=== PATIENT | male | born 1970 | race African-American/Black ===

== ENCOUNTER 2016-12-30 21:00 | Inpatient (IN) | payer OTHER ==
[~2016-12-30 21:00] MED LIST: ISOVUE-370 76%-LOCM 1 ML ONE
[2016-12-30 21:18] LABS: Hematocrit 37.1 % (42.0-52.0); Mean Platelet Volume 7.5 fL (7.4-10.4); Red Blood Cell (RBC) Count 4.83 mill/uL (4.70-6.10); White Blood Cell (WBC) Count 3.5 thou/uL (4.8-10.8)
[2016-12-30 21:26] LABS: PTT 24.5 SEC (22.9-36.1)
[2016-12-30 21:33] LABS: Neutrophil 42 % (42-75); Reactive Lymphocytes 1 % (0-10)
[2016-12-30 21:35] LABS: Prothrombin Time 13.6 SEC (12.0-14.7)
[2016-12-30 21:38] LABS: ALT (SGPT) 30 U/L (8-55); AST (SGOT) 34 U/L (5-34); Alkaline Phosphatase 60 U/L (40-150); Anion Gap 14 mmol/L (10-20); BUN (Urea Nitrogen) 18 mg/dL (8.9-20.6); Bilirubin, Total 0.5 mg/dL (0.2-1.2); Calc. Creatinine Clearance 0 mL/min (70-130); Carbon Dioxide 20 mmol/L (22-29); Chloride 107 mmol/L (98-107); Estimated GFR-MDRD 76; Globulin 3.7 g/dL (2.4-3.5); Protein, Total 7.5 g/dL (6.0-8.3)
[2016-12-30] MEDS ORDERED: Dextrose 5% in Water 1,000 ML IV PRN (21:45)
[2016-12-30] MEDS ORDERED: Ondansetron ODT 4 MG TAB PO PRN (21:45)
[2016-12-30] MEDS ORDERED: Dextrose 50% Abboject 50 ML SYRINGE SLOW IVP PRN (21:45)
[2016-12-30] MEDS ORDERED: Promethazine HCl 25 MG/ML VIAL IM PRN (21:45)
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
[2016-12-30 22:02] LABS: Glucose, Urine (Dipstick) Negative (Negative); Ketone, Urine Trace mg/dL (Negative); Nitrite Negative (Negative); Protein, Urine (Dipstick) 30 mg/dL (Neg-Trace)
[2016-12-30 22:03] LABS: Bilirubin Negative (Negative); Blood, Urine Trace (Negative)
[2016-12-30 22:12] LABS: Amphetamine Not Detected (NotDetected); Methadone Not Detected (NotDetected); Methamphetamine Not Detected (NotDetected)
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
[2016-12-30 22:16] LABS: Bacteria/HPF None Seen HPF (None Seen); Hyaline Casts/LPF 0-3 HYALINE CAST LPF (0-3 Hyaline); Squamous Epithelial 0-3 HPF (0-3); WBC/HPF 0-3 HPF (0-3)
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
[2016-12-30] MEDS ORDERED: Ondansetron HCl/PF 4 MG/2 ML Vial ONE (23:38)
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
[2016-12-31] MEDS: Sodium Chloride 0.9% 1,000 ML IV SCH ×2 (00:58→08:45)
[2016-12-31] MEDS: Dexamethasone 4 mg/ml Vial SLOW IVP SCH ×4 (00:59→17:28)
[2016-12-31] MEDS: Morphine Sulfate 2 MG/ML SYRINGE SLOW IVP PRN ×3 (03:31→13:36)
[2016-12-31 04:58] LABS: #Basophils 0.1 thou/uL (0.0-0.2); #Lymphocytes 0.9 thou/uL (1.20-3.40); #Monocytes 0.3 thou/uL (0.11-0.59); #Neutrophils 4.7 thou/uL (1.40-6.50); %Basophils 1.1 % (0.0-1.0); %Eosinophils 0.3 % (0.0-10.0); %Lymphocytes 15.7 % (21.0-51.0); Hematocrit 38.1 % (42.0-52.0); Mean Platelet Volume 7.3 fL (7.4-10.4); Red Blood Cell (RBC) Count 4.96 mill/uL (4.70-6.10)
[2016-12-31 05:21] LABS: ALT (SGPT) 32 U/L (8-55); AST (SGOT) 28 U/L (5-34); Alkaline Phosphatase 62 U/L (40-150); Anion Gap 12 mmol/L (10-20); BUN (Urea Nitrogen) 13 mg/dL (8.9-20.6); Bilirubin, Total 0.5 mg/dL (0.2-1.2); Calc. Creatinine Clearance 174 mL/min (70-130); Calcium 9.1 mg/dL (7.8-10.44); Carbon Dioxide 21 mmol/L (22-29); Chloride 106 mmol/L (98-107); Estimated GFR-MDRD Greater than 90; Globulin 3.9 g/dL (2.4-3.5); Protein, Total 7.9 g/dL (6.0-8.3)
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
--- NOTE | 2016-12-31 07:40 | MRI ---
MRI THORACIC SPINE: INDICATION: Posttraumatic back pain. FINDINGS: There is no evidence of acute marrow edema, compression fracture, or significant subluxation within the thoracic spine. There is no acute disk space fluid. There are mild multilevel disk-osteophyte complex formation/disk bulges, effaces the ventral aspect of the thecal sac. Mild ventral cord effa cement is present. At the T6-7 level, there is a right paracentral disk protrusion which produces m ild mass effect upon the ventral aspect of the thoracic spinal cord. The degree of patient motion d oes limit evaluation of cord signal. No definitive intramedullary expansile pathologic process is d emonstrated. No obvious paraspinous ligamentous edema. No prevertebral edema of significance is se en. IMPRESSION: 1. No acute marrow edema, compression fracture, or subluxation. 2. Multilevel disk degenerative changes. There is limited evaluation due to patient motion. No ob vious expansile intramedullary acute posttraumatic process is seen. 3. There is mild ventral thoracic spinal cord effacement as a result of a right paracentral disk pr otrusion/osteophyte of the T6-7 level. 4. No acute edema related to ligamentous disruption evident within the thoracic spine. POS: [facility]
[2016-12-31] MEDS: Gabapentin 300 MG CAP PO SCH ×3 (08:44→20:03)
[2016-12-31] MEDS ORDERED: Famotidine/PF 20 mg/2ml Vial SLOW IVP SCH (09:00)
[2016-12-31] MEDS ORDERED: traMADol HCl 50 MG TAB PO SCH (11:30)
[2016-12-31] MEDS ORDERED: Acetaminophen 500 MG TAB PO SCH (11:30)
[2016-12-31] MEDS: traMADol HCl 50 MG TAB PO SCH ×2 (11:58→15:17)
[2016-12-31] MEDS ORDERED: Iopamidol 370 76% 50 ML VIAL FS ONE (14:00)
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
[2016-12-31] MEDS: Acetaminophen 500 MG TAB PO SCH (17:28)
[2016-12-31] MEDS: Ondansetron HCl/PF 4 MG/2 ML Vial IVP PRN (17:28)
--- NOTE | 2016-12-31 19:44 | OP ---
PREOPERATIVE DIAGNOSIS: Spinal cord injury with prolonged bed rest, anticipated no anticoagulation, possible. PROCEDURE: Optease IVC filter placement. FLUOROSCOPY: 1.3 minutes. CONTRAST: 27 mL PROCEDURE IN DETAIL: After prepping and draping the right groin, lidocaine was infiltrated. Ultras ound was used to guide puncture; however, femoral artery was initially punctured. After pressure, u ltimately palpation of the femoral artery allowed puncture the femoral vein. Wire was inserted, dil ator and sheath advanced. Contrast study was adequate for determining the diameter of the aorta 23. 5 to 24 mm; however, the anomalous retroaortic left renal vein was not well visualized. Because of this, a Al catheter was used to cannulate this vessel to low pinpoint location. Following this, t he Optease filter was deployed at the bottom of the L2 vertebral body. Catheters were removed and t he patient tolerated the procedure.
[2017-01-01] MEDS: traMADol HCl 50 MG TAB PO SCH ×4 (00:17→18:12)
[2017-01-01] MEDS: Acetaminophen 500 MG TAB PO SCH ×4 (00:17→18:13)
[2017-01-01] MEDS: Dexamethasone 4 mg/ml Vial SLOW IVP SCH ×2 (00:19→06:00)
[2017-01-01] MEDS: Pantoprazole 40 MG VIAL IVP SCH (08:09)
[2017-01-01] MEDS: Gabapentin 300 MG CAP PO SCH ×3 (08:10→20:18)
[2017-01-01] MEDS: Bacitracin Zinc Ointment 30 gm TUBE TOP PRN (12:38)
[2017-01-02] MEDS: Bacitracin Zinc Ointment 30 gm TUBE TOP PRN
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
[2017-01-02] MEDS: traMADol HCl 50 MG TAB PO SCH ×6 (00:17→20:23)
[2017-01-02] MEDS: Acetaminophen 500 MG TAB PO SCH ×5 (00:18→17:57)
[2017-01-02] MEDS ORDERED: Sodium Chloride 0.9% 1,000 ML IV SCH ×3 (01:45→07:15)
[2017-01-02] MEDS ORDERED: Albumin 5% 250 ML ONE (03:56)
[2017-01-02] MEDS ORDERED: Hydrocortisone Sod Succ/PF 100 mg/2 ml Vial IVP SCH (04:15)
[2017-01-02 04:38] LABS: #Lymphocytes 1.9 thou/uL (1.20-3.40); #Monocytes 0.9 thou/uL (0.11-0.59); #Neutrophils 5.6 thou/uL (1.40-6.50); %Basophils 0.1 % (0.0-1.0); %Eosinophils 0.3 % (0.0-10.0); %Lymphocytes 22.2 % (21.0-51.0); %Monocytes 10.8 % (0.0-10.0); Hematocrit 33.4 % (42.0-52.0); Mean Platelet Volume 7.4 fL (7.4-10.4); Red Blood Cell (RBC) Count 4.32 mill/uL (4.70-6.10); White Blood Cell (WBC) Count 8.4 thou/uL (4.8-10.8)
[2017-01-02 04:42] LABS: PTT 28.4 SEC (22.9-36.1); Prothrombin Time 16.9 SEC (12.0-14.7)
[2017-01-02 05:07] LABS: Anion Gap 14 mmol/L (10-20); BUN (Urea Nitrogen) 33 mg/dL (8.9-20.6); Calc. Creatinine Clearance 69 mL/min (70-130); Calcium 8.2 mg/dL (7.8-10.44); Carbon Dioxide 20 mmol/L (22-29); Chloride 104 mmol/L (98-107); Estimated GFR-MDRD 32; Magnesium 2.3 mg/dL (1.6-2.6); Phosphorus 5.4 mg/dL (2.3-4.7)
[2017-01-02] MEDS ORDERED: Lidocaine 1% (PF) 30 ML VIAL ONE (07:58)
[2017-01-02] MEDS ORDERED: Norepinephrine 8 MG/0.9% NS 250 ML ONE (08:03)
[2017-01-02] MEDS: Sodium Bicarbonate 150 MEQ in Dextrose 5% in Water 850 ML IV SCH ×6 (08:56→17:47)
[2017-01-02] MEDS: Gabapentin 300 MG CAP PO SCH ×2 (09:00→20:24)
[2017-01-02] MEDS: Pantoprazole 40 MG VIAL IVP SCH (09:01)
[2017-01-02] MEDS: Morphine Sulfate 2 MG/ML SYRINGE SLOW IVP PRN (09:01)
[2017-01-02] MEDS: Ondansetron HCl/PF 4 MG/2 ML Vial IVP PRN (09:07)
[2017-01-02] MEDS ORDERED: Fentanyl 100 MCG/2 ML VIAL ONE (10:55)
--- NOTE | 2017-01-02 11:10 | RAD ---
PORTABLE CHEST: HISTORY: Assess line placement. COMPARISON: 12/30/2016 FINDINGS: A central line has been placed via the left subclavian vein. The tip overlies the SVC and appears i n adequate position. There is some linear atelectasis in the left mid lung. There is mild cardiomegaly and mild vascular engorgement. No pneumothorax, infiltrate, or other acute process identified. POS: [facility]
[2017-01-02] MEDS ORDERED: Midazolam HCl 2 mg/2 ml Vial ONE (11:38)
[2017-01-02] MEDS ORDERED: Sodium Chloride 0.9% 10 ML ONE (13:00)
[2017-01-02] MEDS ORDERED: Bacitracin Zinc Ointment 30 gm TUBE ONE (13:03)
[2017-01-02] MEDS ORDERED: Phenylephrine 10 MG/NS 250 ML 0 ML ONE (13:40)
[2017-01-02] MEDS ORDERED: ePHEDrine/0.9% NaCl/PF SYRINGE 50 mg/10 ml ONE (13:53)
[2017-01-02] MEDS ORDERED: PHENYLEPHRINE-NS 100 MCG/ML 10 ML SYRINGE ONE ×2 (13:53→15:09)
[2017-01-02] MEDS ORDERED: Lidocaine 1% PF 5 ML VIAL ONE (13:53)
[2017-01-02] MEDS ORDERED: Propofol 200 MG/20 ML VIAL ONE (13:53)
[2017-01-02] MEDS ORDERED: Dexamethasone 20 MG/5 ML VIAL ONE (13:53)
[2017-01-02] MEDS ORDERED: Rocuronium Bromide 50 MG/5 ML VIAL ONE (14:13)
[2017-01-02] MEDS ORDERED: Albumin 5% 0 ML ONE (15:38)
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
--- NOTE | 2017-01-02 21:59 | OP ---
DATE OF PROCEDURE: 01/02/2017 SURGEON: Tom Schmitz M.D. SENIOR JAVA SOFTWARE ENGINEER: Wiley Lua PA-C PROCEDURE: Anterior cervical discectomy C3-C4, interbody arthrodesis, intravertebral biomechanical device, local morselized autograft, demineralized bone matrix, anterior titanium instrumentation C3- C4, posterior approach C3-C6 laminectomies, lateral mass screw instrumentation C3-C6, demineralized bone matrix, local morselized autograft, posterolateral arthrodesis C3-C6. DESCRIPTION OF PROCEDURE: The patient was brought into the operating room, intubated. He was posit ioned supine with the head in modest extension on a gel-filled donut. Incision was made in the [facility] t precervical area and dissecting medial to the sternocleidomastoid muscle. We identified the anter ior cervical spine and our level was confirmed by x-ray. We debrided anterior osteophytes at C3-C4, placed distraction across C3-C4 and using the operating microscope and microdissection techniques, a complete decompression was achieved to the spinal cord. Next, the bony endplates were decorticate d for the purpose of arthrodesis and appropriately sized intravertebral biomechanical PEEK device wa s brought into the field, filled with demineralized bone matrix and local morselized autograft, and tapped into place securely at C3-C4. Next, an anterior plate was brought in the field and secured t o C3 and C4 using two 14 mm screws at each level. The wound was then extensively irrigated, immacul ate hemostasis was secured, and the wound was closed in anatomic layers. The patient was then placed in the [employer] assistant teacher and rolled in the prone position on gel-filled chest rolls on a separate operating room table. A midline incision was made, exposing the C3-C6 bi laterally. We next performed a complete C6, complete C5, complete C4 and inferior C3 laminectomy, c ompletely decompressing the spinal cord. Lateral mass screws were placed at right C3, right C4, rig ht C5, and right C6, connected by rods, secured by nuts which were finally tightened. The wound was then extensively irrigated, immaculate hemostasis was secured. A combination of demineralized bone matrix and local morselized autograft was laid over the laminar and posterolateral surfaces for the purpose of arthrodesis. Vancomycin powder was applied and the wound was closed in anatomic layers over a drain.
[2017-01-03] MEDS: Acetaminophen 500 MG TAB PO SCH ×3 (00:49→11:28)
[2017-01-03] MEDS: Sodium Bicarbonate 150 MEQ in Dextrose 5% in Water 850 ML IV SCH ×8 (01:47→12:21)
[2017-01-03 04:21] LABS: Anion Gap 15 mmol/L (10-20); BUN (Urea Nitrogen) 39 mg/dL (8.9-20.6); Calc. Creatinine Clearance 97 mL/min (70-130); Calcium 7.5 mg/dL (7.8-10.44); Carbon Dioxide 26 mmol/L (22-29); Chloride 99 mmol/L (98-107); Estimated GFR-MDRD 49; Magnesium 2.2 mg/dL (1.6-2.6); Phosphorus 4.1 mg/dL (2.3-4.7)
[2017-01-03 04:24] LABS: #Monocytes 0.7 thou/uL (0.11-0.59); #Neutrophils 6.8 thou/uL (1.40-6.50); %Basophils 0.1 % (0.0-1.0); %Eosinophils 0.2 % (0.0-10.0); %Monocytes 8.6 % (0.0-10.0); Hematocrit 27.5 % (42.0-52.0); Mean Platelet Volume 8.2 fL (7.4-10.4); White Blood Cell (WBC) Count 8.6 thou/uL (4.8-10.8)
[2017-01-03] MEDS ORDERED: Chloraseptic Spray 180 ml Bottle PO PRN (06:40)
[2017-01-03] MEDS ORDERED: Diazepam 10 MG/2 ML SYRINGE IVP PRN (08:24)
[2017-01-03] MEDS: Gabapentin 300 MG CAP PO SCH ×2 (08:26→21:23)
[2017-01-03] MEDS: traMADol HCl 50 MG TAB PO SCH ×2 (08:27→14:51)
[2017-01-03] MEDS ORDERED: Lactated Ringer's 1,000 ML IV SCH (09:15)
[2017-01-03] MEDS: Pantoprazole 40 MG VIAL IVP SCH (09:40)
[2017-01-03] MEDS: Morphine Sulfate 2 MG/ML SYRINGE SLOW IVP PRN (11:28)
[2017-01-03] MEDS: Lactated Ringer's 1,000 ML IV SCH ×3 (13:20→21:24)
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
[2017-01-03] MEDS: Senokot S 8.6-50 MG TAB PO SCH (21:23)
[2017-01-03] MEDS: HYDROcodone/Acetaminophen 10/325 mg Tablet PO SCH (21:24)
[2017-01-04] MEDS: HYDROcodone/Acetaminophen 10/325 mg Tablet PO SCH ×6 (00:19→20:42)
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
[2017-01-04] MEDS: Lactated Ringer's 1,000 ML IV SCH ×4 (02:24→20:41)
[2017-01-04 05:16] LABS: Anion Gap 13 mmol/L (10-20); BUN (Urea Nitrogen) 42 mg/dL (8.9-20.6); Calc. Creatinine Clearance 125 mL/min (70-130); Calcium 7.8 mg/dL (7.8-10.44); Carbon Dioxide 29 mmol/L (22-29); Chloride 96 mmol/L (98-107); Estimated GFR-MDRD 65; Magnesium 2.5 mg/dL (1.6-2.6)
[2017-01-04 05:20] LABS: #Lymphocytes 1.5 thou/uL (1.20-3.40); #Monocytes 1.3 thou/uL (0.11-0.59); #Neutrophils 5.9 thou/uL (1.40-6.50); %Basophils 0.1 % (0.0-1.0); %Eosinophils 0.3 % (0.0-10.0); %Lymphocytes 17.2 % (21.0-51.0); %Monocytes 14.5 % (0.0-10.0); Hematocrit 27.6 % (42.0-52.0); Mean Platelet Volume 8.3 fL (7.4-10.4); Red Blood Cell (RBC) Count 3.58 mill/uL (4.70-6.10); White Blood Cell (WBC) Count 8.7 thou/uL (4.8-10.8)
[2017-01-04] MEDS: Gabapentin 300 MG CAP PO SCH ×2 (09:19→20:42)
[2017-01-04] MEDS: Polyethylene Glycol 3350 17 GM Packet PO SCH (09:20)
[2017-01-04] MEDS: Senokot S 8.6-50 MG TAB PO SCH ×2 (09:20→20:44)
[2017-01-04] MEDS: Clindamycin/D5W 600 MG in Premix Bag 1 BAG IVPB SCH ×3 (11:19→23:12)
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
[2017-01-04] MEDS: Dronabinol 2.5 MG CAP PO SCH (18:56)
[2017-01-05] MEDS: HYDROcodone/Acetaminophen 10/325 mg Tablet PO SCH ×6 (00:25→20:31)
[2017-01-05] MEDS: Lactated Ringer's 1,000 ML IV SCH (02:34)
[2017-01-05] MEDS: Clindamycin/D5W 600 MG in Premix Bag 1 BAG IVPB SCH (06:02)
[2017-01-05 06:38] LABS: #Lymphocytes 1.7 thou/uL (1.20-3.40); #Monocytes 1.5 thou/uL (0.11-0.59); #Neutrophils 9.8 thou/uL (1.40-6.50); %Eosinophils 0.4 % (0.0-10.0); %Lymphocytes 12.8 % (21.0-51.0); %Monocytes 11.7 % (0.0-10.0); Red Blood Cell (RBC) Count 3.54 mill/uL (4.70-6.10)
[2017-01-05 06:54] LABS: Anion Gap 15 mmol/L (10-20); BUN (Urea Nitrogen) 48 mg/dL (8.9-20.6); Calc. Creatinine Clearance 131 mL/min (70-130); Calcium 8.7 mg/dL (7.8-10.44); Carbon Dioxide 27 mmol/L (22-29); Chloride 95 mmol/L (98-107); Estimated GFR-MDRD 69; Magnesium 3.1 mg/dL (1.6-2.6); Phosphorus 4.4 mg/dL (2.3-4.7)
[2017-01-05 07:14] LABS: Band 1 % (5-11); Hypochromia SLIGHT = 6-15 cells (100X) (0-5/hpf); Mean Platelet Volume 8.7 fL (7.4-10.4); Metamyelocyte 1 % (0-0); Microcytosis SLIGHT = 6-15 cells (100X) (0-5/hpf); Neutrophil 67 % (42-75); Polychromasia SLIGHT = 2-3 cells (100X) (0-2/hpf); Promyelocytes 1 % (0-0)
[2017-01-05] MEDS: Polyethylene Glycol 3350 17 GM Packet PO SCH (08:40)
[2017-01-05] MEDS: Ascorbic Acid 500 mg Chewable Tablet PO SCH ×2 (08:40→20:30)
[2017-01-05] MEDS: Ferrous Sulfate 325 MG TAB PO SCH ×2 (08:41→17:27)
[2017-01-05] MEDS: Gabapentin 300 MG CAP PO SCH ×2 (08:41→20:30)
[2017-01-05] MEDS: Senokot S 8.6-50 MG TAB PO SCH ×2 (08:41→20:30)
[2017-01-05] MEDS: Bisacodyl 10 MG SUPP PR SCH (08:44)
[2017-01-05] MEDS: Dronabinol 2.5 MG CAP PO SCH ×2 (09:20→17:27)
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
[2017-01-05] MEDS: Neostigmine 0.5 MG in Pre-Filled Syringe 1 EACH SC SCH ×2 (11:26→17:27)
[2017-01-06] MEDS: HYDROcodone/Acetaminophen 10/325 mg Tablet PO SCH ×3 (00:20→10:03)
[2017-01-06] MEDS: Neostigmine 0.5 MG in Pre-Filled Syringe 1 EACH SC SCH ×3 (00:21→13:05)
[2017-01-06 04:56] LABS: #Basophils 0.1 thou/uL (0.0-0.2); #Eosinphils 0.2 thou/uL (0.0-0.7); #Lymphocytes 1.9 thou/uL (1.20-3.40); #Neutrophils 9.8 thou/uL (1.40-6.50); %Basophils 0.4 % (0.0-1.0); %Eosinophils 1.3 % (0.0-10.0); %Lymphocytes 13.4 % (21.0-51.0); %Monocytes 14.1 % (0.0-10.0); Hematocrit 24.5 % (42.0-52.0); Mean Platelet Volume 9.4 fL (7.4-10.4); White Blood Cell (WBC) Count 13.8 thou/uL (4.8-10.8)
[2017-01-06 05:09] LABS: Anion Gap 17 mmol/L (10-20); BUN (Urea Nitrogen) 73 mg/dL (8.9-20.6); Calc. Creatinine Clearance 88 mL/min (70-130); Calcium 8.7 mg/dL (7.8-10.44); Carbon Dioxide 26 mmol/L (22-29); Chloride 92 mmol/L (98-107); Estimated GFR-MDRD 43; Magnesium 3.4 mg/dL (1.6-2.6); Phosphorus 5.1 mg/dL (2.3-4.7)
[2017-01-06] MEDS: Ascorbic Acid 500 mg Chewable Tablet PO SCH ×2 (10:02→20:27)
[2017-01-06] MEDS: Gabapentin 300 MG CAP PO SCH ×2 (10:02→20:27)
[2017-01-06] MEDS: Ferrous Sulfate 325 MG TAB PO SCH ×2 (10:02→17:42)
[2017-01-06] MEDS: Dronabinol 2.5 MG CAP PO SCH ×2 (10:02→18:13)
[2017-01-06] MEDS: Bisacodyl 10 MG SUPP PR SCH (10:07)
[2017-01-06] MEDS: Polyethylene Glycol 3350 17 GM Packet PO SCH (10:07)
[2017-01-06] MEDS: Senokot S 8.6-50 MG TAB PO SCH ×2 (10:08→20:27)
[2017-01-06] MEDS: HYDROcodone/Acetaminophen 10/325 mg Tablet PO PRN (17:42)
[2017-01-06] MEDS: Cyclobenzaprine 10 MG TAB PO PRN (20:29)
[2017-01-07] MEDS: HYDROcodone/Acetaminophen 10/325 mg Tablet PO PRN ×2 (04:30→21:57)
[2017-01-07] MEDS ORDERED: Sodium Chloride 0.9% 1,000 ML IV SCH (08:00)
[2017-01-07] MEDS: Gabapentin 300 MG CAP PO SCH ×2 (09:37→21:55)
[2017-01-07] MEDS: Ascorbic Acid 500 mg Chewable Tablet PO SCH ×2 (09:37→21:55)
[2017-01-07] MEDS: Ferrous Sulfate 325 MG TAB PO SCH ×2 (09:38→18:11)
[2017-01-07] MEDS: Polyethylene Glycol 3350 17 GM Packet PO SCH (09:39)
[2017-01-07] MEDS: Senokot S 8.6-50 MG TAB PO SCH ×2 (09:39→21:56)
[2017-01-07] MEDS: Dronabinol 2.5 MG CAP PO SCH ×2 (09:39→18:09)
[2017-01-07] MEDS: Bisacodyl 10 MG SUPP PR SCH (09:40)
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
[2017-01-08] MEDS: Acetaminophen 500 MG TAB PO PRN ×2 (05:16→21:33)
[2017-01-08 05:55] LABS: Anion Gap 15 mmol/L (10-20); BUN (Urea Nitrogen) 82 mg/dL (8.9-20.6); Calc. Creatinine Clearance 90 mL/min (70-130); Calcium 8.4 mg/dL (7.8-10.44); Carbon Dioxide 25 mmol/L (22-29); Chloride 95 mmol/L (98-107); Estimated GFR-MDRD 44; Magnesium 3.6 mg/dL (1.6-2.6); Phosphorus 4.4 mg/dL (2.3-4.7)
[2017-01-08 06:50] LABS: Anisocytosis SLIGHT = 6-15 cells (100X) (0-5/hpf); Band 2 % (5-11); Hematocrit 23.1 % (42.0-52.0); Hypochromia SLIGHT = 6-15 cells (100X) (0-5/hpf); Metamyelocyte 4 % (0-0); Myelocyte 2 % (0-0); Neutrophil 70 % (42-75); Polychromasia SLIGHT = 2-3 cells (100X) (0-2/hpf); White Blood Cell (WBC) Count 16.5 thou/uL (4.8-10.8)
[2017-01-08] MEDS: Sodium Chloride 0.9% 1,000 ML IV SCH ×2 (08:24→16:38)
[2017-01-08] MEDS: Ferrous Sulfate 325 MG TAB PO SCH ×2 (08:25→16:38)
[2017-01-08] MEDS: Ascorbic Acid 500 mg Chewable Tablet PO SCH ×2 (08:25→21:33)
[2017-01-08] MEDS: Dronabinol 2.5 MG CAP PO SCH ×2 (08:52→16:57)
[2017-01-08] MEDS: Gabapentin 300 MG CAP PO SCH ×2 (08:52→21:33)
[2017-01-08] MEDS: Bisacodyl 10 MG SUPP PR SCH (08:52)
[2017-01-08] MEDS: Senokot S 8.6-50 MG TAB PO SCH ×2 (08:53→21:44)
[2017-01-08] MEDS: Polyethylene Glycol 3350 17 GM Packet PO SCH (08:53)
--- NOTE | 2017-01-08 09:13 | PRG ---
DATE OF SERVICE: 01/08/2017 NEUROSURGERY PROGRESS NOTE SUBJECTIVE: I saw Mr. Beckwith in his hospital bed this morning. He has been attended to by his darci ramirez. Yesterday's ultrasound of the lower extremities showed bilateral DVT. There is a filter in plac e. I think we should hold off on any anticoagulation yet. I will have Dr. Schmitz in way and jaden cortez, but I still think it is a bit early from anterior to posterior decompression and fusion of the cervical spine. Otherwise, Mr. Beckwith is doing well and enjoying the the visit. I do not plan to change his hospital course today.
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
[2017-01-08] MEDS: Cyclobenzaprine 10 MG TAB PO PRN (21:33)
[2017-01-08] MEDS: HYDROcodone/Acetaminophen 10/325 mg Tablet PO PRN (21:34)
[2017-01-09] MEDS: Sodium Chloride 0.9% 1,000 ML IV SCH ×4 (00:14→23:10)
[2017-01-09] MEDS: Acetaminophen 500 MG TAB PO PRN (04:22)
[2017-01-09 06:19] LABS: Anion Gap 15 mmol/L (10-20); BUN (Urea Nitrogen) 74 mg/dL (8.9-20.6); Calc. Creatinine Clearance 94 mL/min (70-130); Calcium 8.2 mg/dL (7.8-10.44); Carbon Dioxide 24 mmol/L (22-29); Chloride 98 mmol/L (98-107); Estimated GFR-MDRD 47; Magnesium 3.6 mg/dL (1.6-2.6); Phosphorus 4.6 mg/dL (2.3-4.7)
[2017-01-09 06:20] LABS: Hematocrit 21.7 % (42.0-52.0); Mean Platelet Volume 8.4 fL (7.4-10.4); Metamyelocyte 1 % (0-0); Neutrophil 78 % (42-75); Red Blood Cell (RBC) Count 2.79 mill/uL (4.70-6.10); White Blood Cell (WBC) Count 17.2 thou/uL (4.8-10.8)
--- NOTE | 2017-01-09 07:41 | RAD ---
SINGLE VIEW OF THE CHEST: COMPARISON: 01/02/17. HISTORY: Fever. FINDINGS: A single view of the chest shows a normal-size cardiomediastinal silhouette. There is a linear opac ity in the left lung base which may represent atelectasis or an infiltrate. The central venous cath eter is unchanged in position. IMPRESSION: Opacity in the left lower lobe may represent atelectasis or infiltrate. POS: [facility]
[2017-01-09] MEDS: Dronabinol 2.5 MG CAP PO SCH ×3 (07:58→16:52)
[2017-01-09] MEDS: Ferrous Sulfate 325 MG TAB PO SCH ×2 (10:48→16:48)
[2017-01-09] MEDS: Gabapentin 300 MG CAP PO SCH ×2 (10:48→21:20)
[2017-01-09] MEDS: Bisacodyl 10 MG SUPP PR SCH (10:51)
[2017-01-09] MEDS: Ascorbic Acid 500 mg Chewable Tablet PO SCH ×2 (10:51→21:20)
[2017-01-09] MEDS: Senokot S 8.6-50 MG TAB PO SCH ×2 (10:51→21:20)
[2017-01-09] MEDS: Polyethylene Glycol 3350 17 GM Packet PO SCH (10:51)
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
[2017-01-09] MEDS: cefTRIAXone\\ROCEPHIN 2 GM in Sodium Chloride 0.9% 100 ML IVPB SCH (16:45)
[2017-01-09] MEDS ORDERED: Albumin 25% 25 GM/100 ML BOT IVPB SCH (19:00)
[2017-01-09] MEDS: Cyclobenzaprine 10 MG TAB PO PRN (23:03)
[2017-01-09] MEDS: HYDROcodone/Acetaminophen 10/325 mg Tablet PO PRN (23:03)
[2017-01-10] MEDS: Sodium Chloride 0.9% 1,000 ML IV SCH ×2 (06:48→21:10)
[2017-01-10 08:05] LABS: Hematocrit 20.3 % (42.0-52.0); Mean Platelet Volume 8.4 fL (7.4-10.4); Red Blood Cell (RBC) Count 2.62 mill/uL (4.70-6.10); White Blood Cell (WBC) Count 20.3 thou/uL (4.8-10.8)
[2017-01-10 08:22] LABS: Band 7 % (5-11); Hypochromia SLIGHT = 6-15 cells (100X) (0-5/hpf); Metamyelocyte 1 % (0-0); Myelocyte 1 % (0-0); Neutrophil 75 % (42-75); Polychromasia MODERATE = 3-4 cells (100X) (0-2/hpf)
[2017-01-10 08:25] LABS: Anion Gap 15 mmol/L (10-20); BUN (Urea Nitrogen) 68 mg/dL (8.9-20.6); Calc. Creatinine Clearance 94 mL/min (70-130); Calcium 8.1 mg/dL (7.8-10.44); Carbon Dioxide 21 mmol/L (22-29); Chloride 100 mmol/L (98-107); Estimated GFR-MDRD 47; Magnesium 3.5 mg/dL (1.6-2.6)
[2017-01-10] MEDS: Saccharomyces boulardii 250 MG CAP PO SCH ×2 (10:57→18:02)
[2017-01-10] MEDS: Gabapentin 300 MG CAP PO SCH ×3 (10:57→21:09)
[2017-01-10] MEDS: Ascorbic Acid 500 mg Chewable Tablet PO SCH ×3 (10:57→21:10)
[2017-01-10] MEDS: Ferrous Sulfate 325 MG TAB PO SCH ×3 (10:58→19:05)
[2017-01-10] MEDS: Bisacodyl 10 MG SUPP PR SCH (10:58)
[2017-01-10] MEDS: Dronabinol 2.5 MG CAP PO SCH ×2 (10:59→18:01)
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
[2017-01-10] MEDS: cefTRIAXone\\ROCEPHIN 2 GM in Sodium Chloride 0.9% 100 ML IVPB SCH (16:46)
[2017-01-10] MEDS: Cyclobenzaprine 10 MG TAB PO PRN (18:56)
[2017-01-10] MEDS: HYDROcodone/Acetaminophen 10/325 mg Tablet PO PRN (18:57)
[2017-01-10 21:01] LABS: Bilirubin Negative (Negative); Blood, Urine Moderate (Negative); Glucose, Urine (Dipstick) Negative (Negative); Ketone, Urine Negative (Negative); Nitrite Negative (Negative); Protein, Urine (Dipstick) Trace mg/dL (Neg-Trace)
[2017-01-10 21:03] LABS: Bacteria/HPF None Seen HPF (None Seen); Squamous Epithelial 0-3 HPF (0-3); WBC/HPF 0-3 HPF (0-3)
[2017-01-10] MEDS: GENVOYA PO SCH (21:10)
[2017-01-10 21:16] LABS: RBC/HPF 0-3 HPF (0-3)
[2017-01-10 21:17] LABS: Hyaline Casts/LPF 0-3 HYALINE CAST LPF (0-3 Hyaline)
[2017-01-11] MEDS: Sodium Chloride 0.9% 1,000 ML IV SCH ×3 (00:23→18:31)
[2017-01-11] MEDS: Acetaminophen 500 MG TAB PO PRN (02:07)
[2017-01-11 08:20] LABS: ALT (SGPT) 131 U/L (8-55); AST (SGOT) 188 U/L (5-34); Alkaline Phosphatase 104 U/L (40-150); Anion Gap 15 mmol/L (10-20); BUN (Urea Nitrogen) 67 mg/dL (8.9-20.6); Calc. Creatinine Clearance 94 mL/min (70-130); Calcium 8.2 mg/dL (7.8-10.44); Carbon Dioxide 19 mmol/L (22-29); Chloride 103 mmol/L (98-107); Estimated GFR-MDRD 47; Globulin 3.9 g/dL (2.4-3.5)
[2017-01-11 08:38] LABS: Hematocrit 21.9 % (42.0-52.0); Mean Platelet Volume 8.1 fL (7.4-10.4); Red Blood Cell (RBC) Count 2.79 mill/uL (4.70-6.10); White Blood Cell (WBC) Count 18.7 thou/uL (4.8-10.8)
[2017-01-11 08:44] LABS: Band 8 % (5-11); Metamyelocyte 2 % (0-0); Microcytosis SLIGHT = 6-15 cells (100X) (0-5/hpf); Neutrophil 75 % (42-75); Polychromasia SLIGHT = 2-3 cells (100X) (0-2/hpf); Toxic Granulation SLIGHT
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
[2017-01-11] MEDS: Saccharomyces boulardii 250 MG CAP PO SCH (11:21)
[2017-01-11] MEDS: Ascorbic Acid 500 mg Chewable Tablet PO SCH ×2 (11:21→20:58)
[2017-01-11] MEDS: Gabapentin 300 MG CAP PO SCH ×2 (11:21→20:58)
[2017-01-11] MEDS: Bisacodyl 10 MG SUPP PR SCH (11:21)
[2017-01-11] MEDS: Ferrous Sulfate 325 MG TAB PO SCH ×2 (11:21→16:44)
[2017-01-11] MEDS: Dronabinol 2.5 MG CAP PO SCH ×2 (11:21→17:06)
[2017-01-11] MEDS ORDERED: Furosemide 20 MG TAB PO SCH (12:00)
[2017-01-11] MEDS: cefTRIAXone\\ROCEPHIN 2 GM in Sodium Chloride 0.9% 100 ML IVPB SCH (15:46)
[2017-01-11] MEDS: BIOTENE MOUTH SPRAY 44.3 ML MM PRN (16:49)
[2017-01-11] MEDS: GENVOYA PO SCH (20:58)
[2017-01-11] MEDS: Cyclobenzaprine 10 MG TAB PO PRN (20:59)
[2017-01-12] MEDS: Acetaminophen 500 MG TAB PO PRN (01:06)
[2017-01-12] MEDS: Sodium Chloride 0.9% 1,000 ML IV SCH ×4 (01:06→22:50)
[2017-01-12 06:15] LABS: #Basophils 0.3 thou/uL (0.0-0.2); #Eosinphils 0.1 thou/uL (0.0-0.7); #Lymphocytes 1.1 thou/uL (1.20-3.40); #Monocytes 1.6 thou/uL (0.11-0.59); #Neutrophils 15.8 thou/uL (1.40-6.50); %Basophils 1.6 % (0.0-1.0); %Eosinophils 0.6 % (0.0-10.0); %Lymphocytes 5.6 % (21.0-51.0); %Monocytes 8.2 % (0.0-10.0); Hematocrit 24.3 % (42.0-52.0); Mean Platelet Volume 7.7 fL (7.4-10.4); Red Blood Cell (RBC) Count 3.03 mill/uL (4.70-6.10); White Blood Cell (WBC) Count 18.9 thou/uL (4.8-10.8)
[2017-01-12 06:27] LABS: ALT (SGPT) 147 U/L (8-55); AST (SGOT) 171 U/L (5-34); Alkaline Phosphatase 108 U/L (40-150); Anion Gap 15 mmol/L (10-20); BUN (Urea Nitrogen) 65 mg/dL (8.9-20.6); Bilirubin, Total 0.8 mg/dL (0.2-1.2); Calc. Creatinine Clearance 99 mL/min (70-130); Calcium 8.2 mg/dL (7.8-10.44); Carbon Dioxide 19 mmol/L (22-29); Chloride 102 mmol/L (98-107); Estimated GFR-MDRD 50
[2017-01-12] MEDS: Saccharomyces boulardii 250 MG CAP PO SCH (08:54)
[2017-01-12] MEDS: Ascorbic Acid 500 mg Chewable Tablet PO SCH ×2 (08:54→21:25)
[2017-01-12] MEDS: Ferrous Sulfate 325 MG TAB PO SCH ×2 (08:54→16:32)
[2017-01-12] MEDS: Gabapentin 300 MG CAP PO SCH ×2 (08:54→21:25)
[2017-01-12] MEDS: Dronabinol 2.5 MG CAP PO SCH ×3 (08:54→15:59)
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
[2017-01-12] MEDS: cefTRIAXone\\ROCEPHIN 2 GM in Sodium Chloride 0.9% 100 ML IVPB SCH (16:32)
[2017-01-12] MEDS: GENVOYA PO SCH (21:25)
[2017-01-13] MEDS: HYDROcodone/Acetaminophen 10/325 mg Tablet PO PRN ×2 (01:52→18:42)
[2017-01-13] MEDS: BIOTENE MOUTH SPRAY 44.3 ML MM PRN (02:02)
[2017-01-13] MEDS: Dronabinol 2.5 MG CAP PO SCH ×2 (08:36→17:56)
[2017-01-13] MEDS: Gabapentin 300 MG CAP PO SCH ×2 (09:02→20:10)
[2017-01-13] MEDS: Saccharomyces boulardii 250 MG CAP PO SCH (09:03)
[2017-01-13] MEDS: Ascorbic Acid 500 mg Chewable Tablet PO SCH ×2 (09:03→20:07)
[2017-01-13] MEDS: Ferrous Sulfate 325 MG TAB PO SCH ×2 (09:03→17:56)
[2017-01-13] MEDS: Piperacillin/Tazobactam 3.375 GM in Sodium Chloride 0.9% 100 ML IVPB SCH ×2 (12:25→17:56)
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
[2017-01-13] MEDS: DIPHENHYDRAMINE HCL SSW PRN ×4 (15:53)
[2017-01-13] MEDS: MAGNESIUM HYDROXIDE SSW PRN ×4 (15:53)
[2017-01-13] MEDS: ALUMINUM SSW PRN ×4 (15:53)
[2017-01-13] MEDS: [UNRECOGNIZED DRUG - OTHER] SSW PRN ×4 (15:53)
[2017-01-13] MEDS: Cyclobenzaprine 10 MG TAB PO PRN (18:42)
[2017-01-13] MEDS: GENVOYA PO SCH (20:10)
[2017-01-14] MEDS: Piperacillin/Tazobactam 3.375 GM in Sodium Chloride 0.9% 100 ML IVPB SCH ×4 (00:15→17:56)
[2017-01-14] MEDS: DIPHENHYDRAMINE HCL SSW PRN ×8 (00:30→12:20)
[2017-01-14] MEDS: ALUMINUM SSW PRN ×8 (00:30→12:20)
[2017-01-14] MEDS: MAGNESIUM HYDROXIDE SSW PRN ×8 (00:30→12:20)
[2017-01-14] MEDS: [UNRECOGNIZED DRUG - OTHER] SSW PRN ×8 (00:30→12:20)
[2017-01-14] MEDS: Cyclobenzaprine 10 MG TAB PO PRN ×2 (02:24→17:56)
[2017-01-14 06:10] LABS: #Basophils 0.3 thou/uL (0.0-0.2); #Eosinphils 0.1 thou/uL (0.0-0.7); #Lymphocytes 0.9 thou/uL (1.20-3.40); #Monocytes 1.2 thou/uL (0.11-0.59); #Neutrophils 11.5 thou/uL (1.40-6.50); %Basophils 2.3 % (0.0-1.0); %Eosinophils 0.9 % (0.0-10.0); %Lymphocytes 6.6 % (21.0-51.0); %Monocytes 8.2 % (0.0-10.0); Hematocrit 23.2 % (42.0-52.0)
[2017-01-14 06:34] LABS: Anion Gap 11 mmol/L (10-20); BUN (Urea Nitrogen) 51 mg/dL (8.9-20.6); Calc. Creatinine Clearance 119 mL/min (70-130); Calcium 8.2 mg/dL (7.8-10.44); Carbon Dioxide 22 mmol/L (22-29); Chloride 105 mmol/L (98-107); Estimated GFR-MDRD 61; Magnesium 2.6 mg/dL (1.6-2.6)
[2017-01-14] MEDS ORDERED: Potassium Chloride 20 MEQ TAB PO SCH (08:15)
[2017-01-14] MEDS: Dronabinol 2.5 MG CAP PO SCH ×2 (08:38→16:07)
[2017-01-14] MEDS: Gabapentin 300 MG CAP PO SCH ×2 (09:00→20:43)
[2017-01-14] MEDS: Ascorbic Acid 500 mg Chewable Tablet PO SCH ×2 (09:00→20:43)
[2017-01-14] MEDS: Saccharomyces boulardii 250 MG CAP PO SCH (09:00)
[2017-01-14] MEDS: Ferrous Sulfate 325 MG TAB PO SCH ×2 (09:00→17:56)
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
[2017-01-14] MEDS: HYDROcodone/Acetaminophen 10/325 mg Tablet PO PRN (17:57)
[2017-01-14] MEDS: GENVOYA PO SCH (20:43)
[2017-01-14] MEDS: Sodium Chloride 0.9% 1,000 ML IV SCH (22:15)
[2017-01-15] MEDS: Piperacillin/Tazobactam 3.375 GM in Sodium Chloride 0.9% 100 ML IVPB SCH ×5 (00:55→23:25)
[2017-01-15 01:06] LABS: Bacteria/HPF None Seen HPF (None Seen); Squamous Epithelial 0-3 HPF (0-3)
[2017-01-15 01:10] LABS: RBC/HPF GREATER THAN 50-TNTC HPF (0-3)
[2017-01-15 01:12] LABS: Bilirubin Small (Negative); Blood, Urine Large (Negative); Glucose, Urine (Dipstick) Negative (Negative); Ketone, Urine Negative (Negative); Nitrite Negative (Negative); Protein, Urine (Dipstick) > or equal to 300 mg/dL (Neg-Trace); Urobilinogen 0.2 mg/dL (0.2-1.0)
[2017-01-15 01:15] LABS: Hyaline Casts/LPF 0-3 HYALINE CAST LPF (0-3 Hyaline); Renal Epithelial None Seen HPF (0-3); Transitional Epithelial NONE SEEN HPF (0-3); Yeast-All Forms None Seen HPF (None Seen)
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
[2017-01-15 06:00] LABS: #Eosinphils 0.2 thou/uL (0.0-0.7); %Basophils 0.2 % (0.0-1.0); %Eosinophils 1.2 % (0.0-10.0); %Lymphocytes 7.7 % (21.0-51.0); %Monocytes 7.4 % (0.0-10.0); Hematocrit 22.5 % (42.0-52.0); Mean Platelet Volume 6.6 fL (7.4-10.4); White Blood Cell (WBC) Count 13.1 thou/uL (4.8-10.8)
[2017-01-15 06:47] LABS: Anion Gap 12 mmol/L (10-20); BUN (Urea Nitrogen) 60 mg/dL (8.9-20.6); Calc. Creatinine Clearance 72 mL/min (70-130); Carbon Dioxide 21 mmol/L (22-29); Chloride 105 mmol/L (98-107); Estimated GFR-MDRD 34; Magnesium 2.6 mg/dL (1.6-2.6); Phosphorus 4.6 mg/dL (2.3-4.7)
[2017-01-15] MEDS ORDERED: Potassium Chloride 20 MEQ TAB PO SCH (08:30)
[2017-01-15] MEDS ORDERED: Furosemide 20 MG/2 ML VIAL SLOW IVP SCH (08:30)
[2017-01-15] MEDS: Ascorbic Acid 500 mg Chewable Tablet PO SCH ×2 (08:36→20:50)
[2017-01-15] MEDS: Saccharomyces boulardii 250 MG CAP PO SCH (08:37)
[2017-01-15] MEDS: Gabapentin 300 MG CAP PO SCH ×2 (08:37→20:50)
[2017-01-15] MEDS: Ferrous Sulfate 325 MG TAB PO SCH ×2 (08:37→17:41)
[2017-01-15] MEDS: Dronabinol 2.5 MG CAP PO SCH (09:07)
[2017-01-15] MEDS: Megestrol Acetate 40 MG TAB PO SCH ×2 (14:18→20:50)
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
[2017-01-15] MEDS: GENVOYA PO SCH (20:51)
[2017-01-15] MEDS ORDERED: FLU VACC QS2017-18 36 mo. & older 0.5 ML SYRINGE IM ONE (21:00)
[2017-01-16] MEDS: [UNRECOGNIZED DRUG - OTHER] SSW PRN ×4 (01:34)
[2017-01-16] MEDS: MAGNESIUM HYDROXIDE SSW PRN ×4 (01:34)
[2017-01-16] MEDS: DIPHENHYDRAMINE HCL SSW PRN ×4 (01:34)
[2017-01-16] MEDS: ALUMINUM SSW PRN ×4 (01:34)
[2017-01-16 04:55] LABS: #Eosinphils 0.2 thou/uL (0.0-0.7); #Lymphocytes 1.1 thou/uL (1.20-3.40); #Monocytes 1.1 thou/uL (0.11-0.59); #Neutrophils 9.2 thou/uL (1.40-6.50); %Eosinophils 1.6 % (0.0-10.0); %Lymphocytes 9.3 % (21.0-51.0); %Monocytes 9.1 % (0.0-10.0); Mean Platelet Volume 6.6 fL (7.4-10.4); Red Blood Cell (RBC) Count 2.77 mill/uL (4.70-6.10); White Blood Cell (WBC) Count 11.5 thou/uL (4.8-10.8)
[2017-01-16 05:29] LABS: Anion Gap 11 mmol/L (10-20); BUN (Urea Nitrogen) 69 mg/dL (8.9-20.6); Calc. Creatinine Clearance 62 mL/min (70-130); Calcium 8.2 mg/dL (7.8-10.44); Carbon Dioxide 22 mmol/L (22-29); Chloride 105 mmol/L (98-107); Estimated GFR-MDRD 29; Magnesium 2.8 mg/dL (1.6-2.6); Phosphorus 5.1 mg/dL (2.3-4.7)
[2017-01-16] MEDS: Piperacillin/Tazobactam 3.375 GM in Sodium Chloride 0.9% 100 ML IVPB SCH ×2 (05:51→13:05)
[2017-01-16] MEDS ORDERED: Magnesium Sulfate 3 GM, Admixture Fee 1 EACH in Sodium Chloride 0.9% 100 ML IVPB SCH (07:30)
[2017-01-16] MEDS ORDERED: Potassium Chloride 40 MEQ in Premix Bag 1 BAG IVPB SCH (07:30)
[2017-01-16] MEDS ORDERED: Potassium Chloride 40 MEQ, Admixture Fee 1 EACH in Sodium Chloride 0.9% 250 ML 250 ML IVPB SCH (07:30)
[2017-01-16] MEDS: Ferrous Sulfate 325 MG TAB PO SCH ×2 (09:34→17:41)
[2017-01-16] MEDS: Gabapentin 300 MG CAP PO SCH ×2 (09:34→20:18)
[2017-01-16] MEDS: Megestrol Acetate 40 MG TAB PO SCH ×3 (09:34→20:18)
[2017-01-16] MEDS: Ascorbic Acid 500 mg Chewable Tablet PO SCH ×2 (09:34→20:18)
[2017-01-16] MEDS: Saccharomyces boulardii 250 MG CAP PO SCH (09:35)
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
[2017-01-16] MEDS ORDERED: Nystatin 100,000 Units/mL UDCUP SSW SCH (13:00)
[2017-01-16] MEDS: Nystatin 500,000 UNITS/5 ML UDCUP SSW SCH ×4 (13:06→20:22)
[2017-01-16] MEDS: Loperamide HCl 2 MG CAP PO PRN (13:06)
[2017-01-16 14:55] LABS: Hematocrit 22.9 % (42.0-52.0)
[2017-01-16] MEDS: Piperacillin/Tazobactam 2.25 GM in Sodium Chloride 0.9% 100 ML IVPB SCH (17:41)
[2017-01-16] MEDS: GENVOYA PO SCH (20:17)
[2017-01-16] MEDS: Enoxaparin Sodium 30 MG/0.3 ML SYRINGE SC SCH (20:18)
[2017-01-16] MEDS: HYDROcodone/Acetaminophen 7.5/325 mg Tablet PO PRN (20:33)
[2017-01-17] MEDS: Piperacillin/Tazobactam 2.25 GM in Sodium Chloride 0.9% 100 ML IVPB SCH ×5 (00:03→22:49)
[2017-01-17] MEDS: HYDROcodone/Acetaminophen 7.5/325 mg Tablet PO PRN ×3 (02:53→22:49)
[2017-01-17 06:24] LABS: #Basophils 0.2 thou/uL (0.0-0.2); #Eosinphils 0.1 thou/uL (0.0-0.7); #Lymphocytes 0.9 thou/uL (1.20-3.40); #Monocytes 0.9 thou/uL (0.11-0.59); #Neutrophils 8.9 thou/uL (1.40-6.50); %Basophils 1.6 % (0.0-1.0); %Monocytes 8.1 % (0.0-10.0); Hematocrit 23.3 % (42.0-52.0); Mean Platelet Volume 6.5 fL (7.4-10.4); Red Blood Cell (RBC) Count 2.87 mill/uL (4.70-6.10)
[2017-01-17 07:04] LABS: Anion Gap 14 mmol/L (10-20); BUN (Urea Nitrogen) 80 mg/dL (8.9-20.6); Calc. Creatinine Clearance 50 mL/min (70-130); Calcium 8.2 mg/dL (7.8-10.44); Carbon Dioxide 18 mmol/L (22-29); Chloride 106 mmol/L (98-107); Estimated GFR-MDRD 23; Magnesium 2.6 mg/dL (1.6-2.6); Phosphorus 5.8 mg/dL (2.3-4.7)
[2017-01-17] MEDS ORDERED: Potassium Chloride 40 MEQ, Admixture Fee 1 EACH in Sodium Chloride 0.9% 250 ML 250 ML IVPB SCH (07:45)
[2017-01-17] MEDS ORDERED: Potassium Chloride 40 MEQ in Premix Bag 1 BAG IVPB SCH (07:45)
[2017-01-17] MEDS: Saccharomyces boulardii 250 MG CAP PO SCH (10:24)
[2017-01-17] MEDS: Ascorbic Acid 500 mg Chewable Tablet PO SCH ×2 (10:24→20:06)
[2017-01-17] MEDS: Nystatin 500,000 UNITS/5 ML UDCUP SSW SCH ×4 (10:25→20:06)
[2017-01-17] MEDS: Ferrous Sulfate 325 MG TAB PO SCH ×2 (10:25→17:41)
[2017-01-17] MEDS: Gabapentin 300 MG CAP PO SCH ×2 (10:26→20:06)
[2017-01-17] MEDS: Loperamide HCl 2 MG CAP PO PRN (10:35)
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
[2017-01-17] MEDS ORDERED: ADMIXTURE FEE IVPB SCH (11:30)
[2017-01-17] MEDS ORDERED: BEVACIZUMAB IVPB SCH (11:30)
[2017-01-17] MEDS ORDERED: SODIUM CHLORIDE IVPB SCH (11:30)
[2017-01-17] MEDS: Enoxaparin Sodium 30 MG/0.3 ML SYRINGE SC SCH ×2 (11:43→20:06)
--- NOTE | 2017-01-17 12:46 | ULT ---
RENAL ULTRASOUND: History: History of renal failure. Comparison: None. FINDINGS: The right kidney measures 12.5 x 5.2 x 5.4 cm. Left kidney measures 13.3 x 6.2 x 6.7 cm. No focal re nal lesion or hydronephrosis is evident. Romano catheter is seen in the decompressed bladder. IMPRESSION: No hydronephrosis or solitary lesion. POS: [facility]
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
[2017-01-17] MEDS: Sodium Chloride 0.9% 1,000 ML IV SCH ×2 (17:41→20:06)
[2017-01-17] MEDS: GENVOYA PO SCH (20:06)
[2017-01-18] MEDS: Piperacillin/Tazobactam 2.25 GM in Sodium Chloride 0.9% 100 ML IVPB SCH (05:05)
[2017-01-18 06:57] LABS: #Eosinphils 0.1 thou/uL (0.0-0.7); #Lymphocytes 0.9 thou/uL (1.20-3.40); #Monocytes 0.7 thou/uL (0.11-0.59); #Neutrophils 8.8 thou/uL (1.40-6.50); %Basophils 0.3 % (0.0-1.0); %Eosinophils 1.1 % (0.0-10.0); %Lymphocytes 8.9 % (21.0-51.0); %Monocytes 6.3 % (0.0-10.0); Hematocrit 25.2 % (42.0-52.0); Mean Platelet Volume 6.4 fL (7.4-10.4); Red Blood Cell (RBC) Count 3.13 mill/uL (4.70-6.10); White Blood Cell (WBC) Count 10.5 thou/uL (4.8-10.8)
[2017-01-18 07:21] LABS: Anion Gap 15 mmol/L (10-20); BUN (Urea Nitrogen) 95 mg/dL (8.9-20.6); Calc. Creatinine Clearance 42 mL/min (70-130); Carbon Dioxide 17 mmol/L (22-29); Chloride 108 mmol/L (98-107); Estimated GFR-MDRD 19
[2017-01-18 07:22] LABS: Calcium 8.2 mg/dL (7.8-10.44); Magnesium 2.5 mg/dL (1.6-2.6); Phosphorus 5.8 mg/dL (2.3-4.7)
[2017-01-18] MEDS ORDERED: Potassium Chloride 40 MEQ in Sodium Chloride 0.9% 250 ML 250 ML IVPB SCH (08:45)
[2017-01-18] MEDS: Gabapentin 300 MG CAP PO SCH ×2 (09:39→20:29)
[2017-01-18] MEDS: Nystatin 500,000 UNITS/5 ML UDCUP SSW SCH ×4 (09:39→20:29)
[2017-01-18] MEDS: Ferrous Sulfate 325 MG TAB PO SCH ×2 (09:39→18:03)
[2017-01-18] MEDS: Ascorbic Acid 500 mg Chewable Tablet PO SCH ×2 (09:39→20:29)
[2017-01-18] MEDS: Saccharomyces boulardii 250 MG CAP PO SCH (09:39)
[2017-01-18] MEDS: Sodium Bicarbonate 150 MEQ in Dextrose 5% in Water 1,000 ML IV SCH ×2 (09:40)
[2017-01-18] MEDS: Enoxaparin Sodium 30 MG/0.3 ML SYRINGE SC SCH ×2 (09:41→20:29)
[2017-01-18] MEDS: Sodium Chloride 0.9% 1,000 ML IV SCH ×3 (09:42→20:33)
--- NOTE | 2017-01-18 10:41 | RAD ---
ABDOMEN ONE VIEW: History: IVC filter. Abdomen pain. FINDINGS: There is a gaseous distention of the colon. Gas filled loops of small bowel are also present through out the abdomen and pelvis. A Trapease metallic filter overlies the right retroperitoneum at the L3 level, at an appropriate expected location of the inferior vena cava. Image 5 shows lobular densities over the left upper quadrant, likely representing bowel content. IMPRESSION: 1. Gaseous distention of the colon. 2. Metallic filter overlying the inferior vena cava. POS: [facility]
[2017-01-18] MEDS: Neostigmine 0.5 MG in Admixture Fee 1 EACH SC SCH ×3 (13:25→23:19)
[2017-01-18 15:44] LABS: EOS SMR Source Urine
[2017-01-18 16:07] LABS: Bilirubin Negative (Negative); Blood, Urine Large (Negative); Glucose, Urine (Dipstick) Negative (Negative); Ketone, Urine Negative (Negative); Nitrite Negative (Negative); Protein, Urine (Dipstick) 30 mg/dL (Neg-Trace); Urobilinogen 0.2 mg/dL (0.2-1.0)
[2017-01-18 16:23] LABS: RBC/HPF 21-50 HPF (0-3)
[2017-01-18 16:24] LABS: Hyaline Casts/LPF 0-3 HYALINE CAST LPF (0-3 Hyaline)
[2017-01-18 16:25] LABS: Bacteria/HPF Rare-Few HPF (None Seen)
[2017-01-18 16:33] LABS: Magnesium 2.3 mg/dL (1.6-2.6)
[2017-01-18 16:41] LABS: Phosphorus, Urine 27.7 mg/dL; Potassium, Urine Less than 10.0 mmol/L; Sodium, Urine 66 mmol/L (Not Available)
[2017-01-18] MEDS ORDERED: Potassium Chloride 40 MEQ in Premix Bag 1 BAG IVPB SCH (20:00)
[2017-01-18] MEDS: GENVOYA PO SCH (20:29)
[2017-01-18] MEDS: HYDROcodone/Acetaminophen 7.5/325 mg Tablet PO PRN (21:17)
[2017-01-18] MEDS: Acetaminophen 500 MG TAB PO PRN (23:19)
[2017-01-19] MEDS: Neostigmine 0.5 MG in Admixture Fee 1 EACH SC SCH ×4 (05:02→23:24)
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
[2017-01-19 08:35] LABS: #Basophils 0.2 thou/uL (0.0-0.2); #Eosinphils 0.1 thou/uL (0.0-0.7); #Lymphocytes 0.6 thou/uL (1.20-3.40); #Neutrophils 8.5 thou/uL (1.40-6.50); %Basophils 1.8 % (0.0-1.0); %Lymphocytes 6.2 % (21.0-51.0); %Monocytes 9.1 % (0.0-10.0); Hematocrit 25.5 % (42.0-52.0); Mean Platelet Volume 6.5 fL (7.4-10.4); Red Blood Cell (RBC) Count 3.15 mill/uL (4.70-6.10); White Blood Cell (WBC) Count 10.4 thou/uL (4.8-10.8)
[2017-01-19 08:58] LABS: Anion Gap 14 mmol/L (10-20); BUN (Urea Nitrogen) 94 mg/dL (8.9-20.6); Calc. Creatinine Clearance 41 mL/min (70-130); Calcium 8.2 mg/dL (7.8-10.44); Carbon Dioxide 17 mmol/L (22-29); Chloride 108 mmol/L (98-107); Estimated GFR-MDRD 18; Magnesium 2.4 mg/dL (1.6-2.6); Phosphorus 5.4 mg/dL (2.3-4.7)
[2017-01-19] MEDS ORDERED: Sodium Chloride 0.9% 1,000 ML IV SCH (09:15)
[2017-01-19] MEDS: Saccharomyces boulardii 250 MG CAP PO SCH (09:29)
[2017-01-19] MEDS: Ferrous Sulfate 325 MG TAB PO SCH ×2 (09:29→17:17)
[2017-01-19] MEDS: Nystatin 500,000 UNITS/5 ML UDCUP SSW SCH ×4 (09:29→20:36)
[2017-01-19] MEDS: Ascorbic Acid 500 mg Chewable Tablet PO SCH ×2 (09:29→20:49)
[2017-01-19] MEDS: Gabapentin 300 MG CAP PO SCH ×2 (09:29→20:35)
[2017-01-19] MEDS: Enoxaparin Sodium 30 MG/0.3 ML SYRINGE SC SCH ×2 (09:30→20:35)
[2017-01-19] MEDS: Sodium Chloride 0.9% 1,000 ML IV SCH ×5 (09:35→22:30)
[2017-01-19] MEDS ORDERED: Potassium Chloride 40 MEQ in Premix Bag 1 BAG IVPB SCH (10:00)
--- NOTE | 2017-01-19 10:54 | PRG ---
Patient Name: STEPHEN HENDERSON Date of service: 01/19/2017 Subjective: Patient was seen and examined at bedside and overnight events noted. Patient denies any shortness of breath or chest pain or palpitation. No history of nausea or vomiting or diarrhea or fever or chills or cramps. Objective: General: This is a well-built male in no apparent distress. Vital signs: Temperature 98.7, pulse 86, respiratory rate 16, blood pressure 143/75. HEENT: Atraumatic, normocephalic. Oral mucosa is moist. Neck: Supple. Cardiovascular: S1 S2 heard. Rate and rhythm regular. Respiratory: Clear to auscultation. Gastrointestinal: Abdomen is soft. Musculoskeletal: No tenderness. 2+ edema. Dermatologic: No skin rash. Neurologic: Alert and awake and oriented X3. No focal neurologic deficits. Moving all the extremi ties. Psychiatric: Mood and affect normal. LABORATORY: Hemoglobin is 8.2, potassium is 2.9, BUN 94, creatinine is 4.3. I's and O's were positive yesterday, 5045 in, 4350 out with urine output of 3850. ASSESSMENT AND PLAN: 1. Acute kidney injury, avoid nephrotoxins, continue on IV fluids, keep even at this point and ava tor renal function and continue close monitoring of outputs and inputs. 2. Hypokalemia. Recommend aggressive supplementation. 3. Acidosis, stable. 4. Anemia, stable. 5. Hypertension, stable. 6. Edema with anasarca, will monitor. We will continue to monitor renal function. Avoid nephrotoxins. We will follow. We will check for proteinuria.
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
[2017-01-19] MEDS: Potassium Chloride 20 MEQ TAB PO SCH (17:17)
[2017-01-19] MEDS: GENVOYA PO SCH (20:36)
[2017-01-19] MEDS: HYDROcodone/Acetaminophen 7.5/325 mg Tablet PO PRN (21:07)
[2017-01-20] MEDS: Sodium Chloride 0.9% 1,000 ML IV SCH ×3 (05:17→23:23)
[2017-01-20] MEDS: Neostigmine 0.5 MG in Admixture Fee 1 EACH SC SCH ×4 (05:18→23:20)
[2017-01-20 05:30] LABS: #Eosinphils 0.1 thou/uL (0.0-0.7); #Lymphocytes 0.8 thou/uL (1.20-3.40); #Monocytes 0.9 thou/uL (0.11-0.59); #Neutrophils 7.2 thou/uL (1.40-6.50); %Basophils 0.1 % (0.0-1.0); %Eosinophils 1.6 % (0.0-10.0); %Lymphocytes 8.7 % (21.0-51.0); %Monocytes 9.5 % (0.0-10.0); Hematocrit 24.7 % (42.0-52.0); Mean Platelet Volume 6.3 fL (7.4-10.4); Red Blood Cell (RBC) Count 3.03 mill/uL (4.70-6.10)
[2017-01-20 05:53] LABS: Anion Gap 12 mmol/L (10-20); BUN (Urea Nitrogen) 88 mg/dL (8.9-20.6); Calc. Creatinine Clearance 44 mL/min (70-130); Calcium 7.9 mg/dL (7.8-10.44); Carbon Dioxide 18 mmol/L (22-29); Chloride 110 mmol/L (98-107); Estimated GFR-MDRD 20; Magnesium 2.3 mg/dL (1.6-2.6); Phosphorus 4.4 mg/dL (2.3-4.7)
[2017-01-20] MEDS ORDERED: Potassium Chloride 40 MEQ, Admixture Fee 1 EACH in Sodium Chloride 0.9% 250 ML 250 ML IVPB SCH (08:15)
[2017-01-20] MEDS ORDERED: Potassium Chloride 40 MEQ in Premix Bag 1 BAG IVPB SCH (08:15)
[2017-01-20] MEDS: Potassium Chloride 20 MEQ TAB PO SCH ×2 (09:25→17:20)
[2017-01-20] MEDS: Acetaminophen 500 MG TAB PO PRN (09:25)
[2017-01-20] MEDS: Nystatin 500,000 UNITS/5 ML UDCUP SSW SCH ×4 (09:26→20:57)
[2017-01-20] MEDS: Gabapentin 300 MG CAP PO SCH ×2 (09:26→20:31)
[2017-01-20] MEDS: Ferrous Sulfate 325 MG TAB PO SCH ×2 (09:26→17:20)
[2017-01-20] MEDS: Saccharomyces boulardii 250 MG CAP PO SCH (09:26)
[2017-01-20] MEDS: Ascorbic Acid 500 mg Chewable Tablet PO SCH ×2 (09:34→20:30)
[2017-01-20] MEDS: Enoxaparin Sodium 30 MG/0.3 ML SYRINGE SC SCH ×2 (09:42→20:30)
--- NOTE | 2017-01-20 10:46 | PRG ---
DATE OF SERVICE: 01/20/2017 SUBJECTIVE: Patient was seen and examined at bedside and overnight events noted. Patient denies an y shortness of breath or chest pain or palpitation. No history of nausea or vomiting or diarrhea or fever or chills or cramps. OBJECTIVE: GENERAL: This is a well-built male in no apparent distress. VITAL SIGNS: Temperature 99.0, pulse 77, respiratory rate 18, blood pressure 193/71. HEENT: Atraumatic, normocephalic. Oral mucosa is moist. NECK: Supple. CARDIOVASCULAR: S1 and S2 heard, rate and rhythm regular. RESPIRATORY: Clear to auscultation. GASTROINTESTINAL: Abdomen is soft. MUSCULOSKELETAL: No tenderness, no edema. DERMATOLOGIC: No skin rash. NEUROLOGIC: Alert and awake and oriented X3. No focal neurologic deficits. Moving all the extremi ties. PSYCHIATRIC: Mood and affect normal. LABORATORY DATA: Potassium is 3.0, BUN is 80, and creatinine is 4.2. ASSESSMENT AND PLAN: 1. Acute kidney injury, seems like creatinine is showing a positive trend including BUN, we will co ntinue to monitor. 2. Polyuria. Will have a trial of desmopressin dose. 3. Hypokalemia. Continue aggressive supplements. 4. Acidosis. 5. Anemia, rule out bleed. 6. Edema with anasarca. 7. Desmopressin one dose today and then avoid nephrotoxins, hold Zosyn, and will follow.
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
[2017-01-20] MEDS ORDERED: Potassium Chloride 20 MEQ TAB PO SCH (17:45)
[2017-01-20] MEDS: GENVOYA PO SCH (20:32)
[2017-01-21] MEDS: HYDROcodone/Acetaminophen 7.5/325 mg Tablet PO PRN (01:08)
[2017-01-21] MEDS: Cyclobenzaprine 10 MG TAB PO PRN ×2 (04:40→23:07)
[2017-01-21] MEDS: Neostigmine 0.5 MG in Admixture Fee 1 EACH SC SCH (06:06)
[2017-01-21 06:31] LABS: #Basophils 0.2 thou/uL (0.0-0.2); #Eosinphils 0.1 thou/uL (0.0-0.7); #Lymphocytes 0.7 thou/uL (1.20-3.40); #Monocytes 0.8 thou/uL (0.11-0.59); #Neutrophils 6.6 thou/uL (1.40-6.50); %Basophils 2.6 % (0.0-1.0); %Eosinophils 0.7 % (0.0-10.0); %Monocytes 9.6 % (0.0-10.0); Hematocrit 22.9 % (42.0-52.0); Mean Platelet Volume 6.6 fL (7.4-10.4); Red Blood Cell (RBC) Count 2.79 mill/uL (4.70-6.10); White Blood Cell (WBC) Count 8.4 thou/uL (4.8-10.8)
[2017-01-21 06:33] LABS: Anion Gap 12 mmol/L (10-20); BUN (Urea Nitrogen) 78 mg/dL (8.9-20.6); Calc. Creatinine Clearance 50 mL/min (70-130); Calcium 8.1 mg/dL (7.8-10.44); Carbon Dioxide 17 mmol/L (22-29); Chloride 111 mmol/L (98-107); Estimated GFR-MDRD 22
[2017-01-21] MEDS: Saccharomyces boulardii 250 MG CAP PO SCH (09:59)
[2017-01-21] MEDS: Nystatin 500,000 UNITS/5 ML UDCUP SSW SCH ×4 (09:59→21:08)
[2017-01-21] MEDS: Gabapentin 300 MG CAP PO SCH ×2 (09:59→21:08)
[2017-01-21] MEDS: Ascorbic Acid 500 mg Chewable Tablet PO SCH ×2 (09:59→21:10)
[2017-01-21] MEDS: Ferrous Sulfate 325 MG TAB PO SCH ×2 (09:59→17:31)
[2017-01-21] MEDS: Potassium Chloride 20 MEQ TAB PO SCH ×2 (09:59→17:31)
[2017-01-21] MEDS: Enoxaparin Sodium 30 MG/0.3 ML SYRINGE SC SCH ×2 (10:01→21:08)
[2017-01-21] MEDS: Sodium Chloride 0.9% 1,000 ML IV SCH (10:02)
[2017-01-21] MEDS ORDERED: Potassium Chloride 20 MEQ TAB PO SCH ×2 (10:30→19:30)
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
[2017-01-21] MEDS: Sodium Bicarbonate 150 MEQ in Dextrose 5% in Water 1,000 ML IV SCH ×6 (11:40→23:00)
[2017-01-21 17:33] LABS: Anion Gap 13 mmol/L (10-20); BUN (Urea Nitrogen) 75 mg/dL (8.9-20.6); Calc. Creatinine Clearance 56 mL/min (70-130); Calcium 8.4 mg/dL (7.8-10.44); Carbon Dioxide 18 mmol/L (22-29); Chloride 109 mmol/L (98-107); Estimated GFR-MDRD 26
[2017-01-21] MEDS: GENVOYA PO SCH (21:08)
[2017-01-21] MEDS: Acetaminophen 500 MG TAB PO PRN (21:13)
[2017-01-22] MEDS: HYDROcodone/Acetaminophen 7.5/325 mg Tablet PO PRN ×2 (02:01→23:42)
[2017-01-22] MEDS: Sodium Bicarbonate 150 MEQ in Dextrose 5% in Water 1,000 ML IV SCH ×2 (04:30)
[2017-01-22 09:24] LABS: #Eosinphils 0.1 thou/uL (0.0-0.7); #Lymphocytes 0.7 thou/uL (1.20-3.40); #Monocytes 1.1 thou/uL (0.11-0.59); #Neutrophils 7.8 thou/uL (1.40-6.50); %Basophils 0.4 % (0.0-1.0); %Eosinophils 1.4 % (0.0-10.0); %Lymphocytes 6.8 % (21.0-51.0); %Monocytes 11.3 % (0.0-10.0); Hematocrit 24.3 % (42.0-52.0); Mean Platelet Volume 6.5 fL (7.4-10.4); Red Blood Cell (RBC) Count 2.98 mill/uL (4.70-6.10); White Blood Cell (WBC) Count 9.8 thou/uL (4.8-10.8)
[2017-01-22 09:36] LABS: BUN (Urea Nitrogen) 66 mg/dL (8.9-20.6); Calc. Creatinine Clearance 66 mL/min (70-130); Calcium 8.4 mg/dL (7.8-10.44); Carbon Dioxide 23 mmol/L (22-29); Chloride 108 mmol/L (98-107); Estimated GFR-MDRD 31; Magnesium 1.8 mg/dL (1.6-2.6); Phosphorus 3.2 mg/dL (2.3-4.7)
[2017-01-22] MEDS: Nystatin 500,000 UNITS/5 ML UDCUP SSW SCH ×4 (10:28→20:14)
[2017-01-22] MEDS: Enoxaparin Sodium 30 MG/0.3 ML SYRINGE SC SCH ×2 (10:28→20:21)
[2017-01-22] MEDS: Ferrous Sulfate 325 MG TAB PO SCH ×2 (10:29→17:54)
[2017-01-22] MEDS: Ascorbic Acid 500 mg Chewable Tablet PO SCH ×2 (10:29→20:09)
[2017-01-22] MEDS: Saccharomyces boulardii 250 MG CAP PO SCH (10:29)
[2017-01-22] MEDS: Gabapentin 300 MG CAP PO SCH ×2 (10:29→20:09)
[2017-01-22] MEDS: Potassium Chloride 20 MEQ TAB PO SCH ×2 (10:29→17:55)
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
[2017-01-22] MEDS ORDERED: Potassium Chloride 20 MEQ TAB PO SCH (11:30)
[2017-01-22 12:01] LABS: Anion Gap 9 mmol/L (10-20)
[2017-01-22] MEDS: Sodium Chloride 0.9% 1,000 ML IV SCH (13:22)
[2017-01-22] MEDS: GENVOYA PO SCH (20:09)
[2017-01-22] MEDS: Cyclobenzaprine 10 MG TAB PO PRN (21:31)
[2017-01-23] MEDS: Acetaminophen 500 MG TAB PO PRN (01:50)
--- NOTE | 2017-01-23 08:45 | PRG ---
DATE OF SERVICE: 01/23/2017 SUBJECTIVE: This is a 46-year-old gentleman being seen for acute kidney injury. The patient denies any nausea, vomiting, or chest pain. PHYSICAL EXAMINATION: GENERAL: Patient is awake, alert. VITAL SIGNS: Afebrile, pulse 97, breathing 16, blood pressure 115/64. GENERAL APPEARANCE AND MENTAL STATUS: Fair. HEAD/NECK: Normocephalic. Atraumatic. EYES: EOMI. No deformity. EARS: Clear. No ulcers. NOSE: Intact. No lesions. MOUTH: Clear. No discharge. THROAT: Clear. No exudate. LUNGS: Clear. No crackles. CARDIAC: S1, S2. No rub. ABDOMEN: Benign. BS+. GENITALIA/RECTUM: Romano absent. BACK/EXTREMITIES: Edema 0+ Ulcer- NEUROLOGICAL: Weakness is noted. SKIN: Rash- Bruise- LYMPHATICS: Edema- Ulcer- LABORATORY DATA: Show hemoglobin is pending. Labs are pending. ASSESSMENT AND RECOMMENDATIONS: 1. Stage 3 chronic kidney disease with acute kidney injury. Continue hydration. 2. Metabolic acidosis, stable. 2. Hypokalemia. We will recheck potassium. No indication for dialysis at this time, patient is nonoliguric. MTDD
[2017-01-23] MEDS: Ascorbic Acid 500 mg Chewable Tablet PO SCH ×2 (09:04→20:56)
[2017-01-23] MEDS: Enoxaparin Sodium 30 MG/0.3 ML SYRINGE SC SCH ×2 (09:04→20:54)
[2017-01-23] MEDS: Saccharomyces boulardii 250 MG CAP PO SCH (09:04)
[2017-01-23] MEDS: Ferrous Sulfate 325 MG TAB PO SCH ×2 (09:04→17:27)
[2017-01-23] MEDS: Gabapentin 300 MG CAP PO SCH ×2 (09:04→20:55)
[2017-01-23] MEDS: Potassium Chloride 20 MEQ TAB PO SCH ×2 (09:04→17:26)
[2017-01-23] MEDS: Nystatin 500,000 UNITS/5 ML UDCUP SSW SCH ×4 (09:05→20:56)
[2017-01-23] MEDS: Sodium Chloride 0.9% 1,000 ML IV SCH (09:13)
[2017-01-23 10:18] LABS: #Eosinphils 0.1 thou/uL (0.0-0.7); #Lymphocytes 0.9 thou/uL (1.20-3.40); #Neutrophils 8.1 thou/uL (1.40-6.50); %Basophils 0.2 % (0.0-1.0); %Eosinophils 1.4 % (0.0-10.0); %Lymphocytes 8.7 % (21.0-51.0); %Monocytes 9.5 % (0.0-10.0); Hematocrit 25.1 % (42.0-52.0); Mean Platelet Volume 6.6 fL (7.4-10.4); Red Blood Cell (RBC) Count 3.06 mill/uL (4.70-6.10); White Blood Cell (WBC) Count 10.1 thou/uL (4.8-10.8)
[2017-01-23 10:41] LABS: Anion Gap 12 mmol/L (10-20); BUN (Urea Nitrogen) 54 mg/dL (8.9-20.6); Calc. Creatinine Clearance 80 mL/min (70-130); Calcium 8.5 mg/dL (7.8-10.44); Carbon Dioxide 22 mmol/L (22-29); Chloride 108 mmol/L (98-107); Estimated GFR-MDRD 39; Magnesium 1.7 mg/dL (1.6-2.6)
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
[2017-01-23] MEDS: Melatonin 3 MG TAB PO PRN (20:54)
[2017-01-23] MEDS: GENVOYA PO SCH (20:57)
[2017-01-24] MEDS: Cyclobenzaprine 10 MG TAB PO PRN (00:19)
[2017-01-24 04:51] LABS: #Eosinphils 0.2 thou/uL (0.0-0.7); #Lymphocytes 1.1 thou/uL (1.20-3.40); #Neutrophils 7.1 thou/uL (1.40-6.50); %Basophils 0.4 % (0.0-1.0); %Eosinophils 1.8 % (0.0-10.0); %Lymphocytes 11.9 % (21.0-51.0); %Monocytes 10.5 % (0.0-10.0); Hematocrit 23.1 % (42.0-52.0); Mean Platelet Volume 6.5 fL (7.4-10.4); Red Blood Cell (RBC) Count 2.82 mill/uL (4.70-6.10); White Blood Cell (WBC) Count 9.5 thou/uL (4.8-10.8)
[2017-01-24 05:12] LABS: Anion Gap 12 mmol/L (10-20); BUN (Urea Nitrogen) 47 mg/dL (8.9-20.6); Calc. Creatinine Clearance 94 mL/min (70-130); Calcium 8.5 mg/dL (7.8-10.44); Carbon Dioxide 22 mmol/L (22-29); Chloride 106 mmol/L (98-107); Estimated GFR-MDRD 47; Magnesium 1.4 mg/dL (1.6-2.6); Phosphorus 2.7 mg/dL (2.3-4.7)
[2017-01-24] MEDS: Loperamide HCl 2 MG CAP PO PRN ×2 (06:24→20:11)
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
[2017-01-24] MEDS ORDERED: Magnesium Sulfate 3 GM, Admixture Fee 1 EACH in Sodium Chloride 0.9% 100 ML IVPB SCH (08:15)
[2017-01-24] MEDS ORDERED: Magnesium Chloride 64 MG TAB PO SCH (09:00)
[2017-01-24] MEDS: Saccharomyces boulardii 250 MG CAP PO SCH (09:08)
[2017-01-24] MEDS: Ascorbic Acid 500 mg Chewable Tablet PO SCH ×2 (09:09→09:24)
[2017-01-24] MEDS: Gabapentin 300 MG CAP PO SCH ×2 (09:09→19:52)
[2017-01-24] MEDS: Potassium Chloride 20 MEQ TAB PO SCH ×2 (09:09→17:28)
[2017-01-24] MEDS: Ferrous Sulfate 325 MG TAB PO SCH ×2 (09:09→17:28)
[2017-01-24] MEDS: Enoxaparin Sodium 30 MG/0.3 ML SYRINGE SC SCH ×2 (09:10→19:52)
[2017-01-24] MEDS: Nystatin 500,000 UNITS/5 ML UDCUP SSW SCH ×2 (09:13→09:17)
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
[2017-01-24 13:10] VITALS: BMI 47.1
[2017-01-24] MEDS: Temazepam 15 MG CAP PO SCH (19:52)
[2017-01-24] MEDS: GENVOYA PO SCH (19:57)
[2017-01-25] MEDS: Acetaminophen 500 MG TAB PO PRN ×2 (00:31→18:10)
[2017-01-25] MEDS: Cyclobenzaprine 10 MG TAB PO PRN (00:31)
[2017-01-25] MEDS: Gabapentin 300 MG CAP PO SCH ×2 (08:07→20:41)
[2017-01-25] MEDS: Saccharomyces boulardii 250 MG CAP PO SCH (08:07)
[2017-01-25] MEDS: Multivit, Therapeutic 1 TAB PO SCH (08:07)
[2017-01-25] MEDS: Ferrous Sulfate 325 MG TAB PO SCH ×2 (08:08→18:10)
[2017-01-25] MEDS: Enoxaparin Sodium 30 MG/0.3 ML SYRINGE SC SCH ×2 (08:10→20:40)
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
[2017-01-25 10:26] LABS: Anion Gap 9 mmol/L (10-20); BUN (Urea Nitrogen) 38 mg/dL (8.9-20.6); Calc. Creatinine Clearance 167 mL/min (70-130); Calcium 8.6 mg/dL (7.8-10.44); Carbon Dioxide 22 mmol/L (22-29); Chloride 106 mmol/L (98-107); Estimated GFR-MDRD 65
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
[2017-01-25] MEDS ORDERED: traMADol HCl 50 MG TAB PO PRN (15:14)
[2017-01-25] MEDS: Melatonin 3 MG TAB PO PRN (20:41)
[2017-01-25] MEDS: Temazepam 15 MG CAP PO SCH (20:41)
[2017-01-25] MEDS: GENVOYA PO SCH (20:42)
[2017-01-26 06:07] LABS: #Eosinphils 0.2 thou/uL (0.0-0.7); #Monocytes 0.8 thou/uL (0.11-0.59); #Neutrophils 6.4 thou/uL (1.40-6.50); %Basophils 0.4 % (0.0-1.0); %Eosinophils 2.4 % (0.0-10.0); %Lymphocytes 11.9 % (21.0-51.0); %Monocytes 9.3 % (0.0-10.0); Hematocrit 23.2 % (42.0-52.0); Mean Platelet Volume 6.4 fL (7.4-10.4); Red Blood Cell (RBC) Count 2.84 mill/uL (4.70-6.10); White Blood Cell (WBC) Count 8.4 thou/uL (4.8-10.8)
[2017-01-26 06:42] LABS: Anion Gap 11 mmol/L (10-20); BUN (Urea Nitrogen) 32 mg/dL (8.9-20.6); Calc. Creatinine Clearance 181 mL/min (70-130); Calcium 8.5 mg/dL (7.8-10.44); Carbon Dioxide 20 mmol/L (22-29); Chloride 106 mmol/L (98-107); Estimated GFR-MDRD 72; Magnesium 1.3 mg/dL (1.6-2.6); Phosphorus 2.7 mg/dL (2.3-4.7)
[2017-01-26] MEDS ORDERED: Magnesium Oxide 400 MG TAB PO ONE (07:14)
[2017-01-26] MEDS ORDERED: Magnesium Sulfate 4 GM in Sodium Chloride 0.9% 250 ML 250 ML IVPB SCH (07:30)
[2017-01-26] MEDS ORDERED: Potassium Chloride 20 MEQ TAB PO SCH (08:00)
[2017-01-26] MEDS: Ferrous Sulfate 325 MG TAB PO SCH ×2 (09:16→17:17)
[2017-01-26] MEDS: Potassium Chloride 20 MEQ TAB PO SCH ×2 (09:16→18:19)
[2017-01-26] MEDS: Saccharomyces boulardii 250 MG CAP PO SCH (09:17)
[2017-01-26] MEDS: Multivit, Therapeutic 1 TAB PO SCH (09:17)
[2017-01-26] MEDS: Gabapentin 300 MG CAP PO SCH ×2 (09:17→21:07)
[2017-01-26] MEDS: Enoxaparin Sodium 30 MG/0.3 ML SYRINGE SC SCH ×2 (09:18→21:07)
[2017-01-26] MEDS: BIOTENE MOUTH SPRAY 44.3 ML MM PRN (09:24)
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
[2017-01-26] MEDS ORDERED: Potassium Chloride 20 MEQ/100 ML PREMIX BAG IVPB SCH (14:45)
[2017-01-26] MEDS ORDERED: Magnesium 2 GM/NS 0.9% 100 ML 2 GM in Premix Bag 1 BAG IVPB SCH (15:00)
[2017-01-26] MEDS ORDERED: Potassium Chloride 20 MEQ in Premix Bag 1 BAG IVPB SCH (15:00)
[2017-01-26] MEDS: Melatonin 3 MG TAB PO PRN (21:09)
[2017-01-26] MEDS: Temazepam 15 MG CAP PO SCH (21:09)
[2017-01-26] MEDS: GENVOYA PO SCH (21:13)
[2017-01-27] MEDS: Acetaminophen 500 MG TAB PO PRN (01:02)
[2017-01-27 07:20] LABS: Anion Gap 10 mmol/L (10-20); BUN (Urea Nitrogen) 26 mg/dL (8.9-20.6); Calc. Creatinine Clearance 205 mL/min (70-130); Calcium 8.4 mg/dL (7.8-10.44); Carbon Dioxide 22 mmol/L (22-29); Chloride 107 mmol/L (98-107); Estimated GFR-MDRD 83; Magnesium 1.6 mg/dL (1.6-2.6); Phosphorus 2.8 mg/dL (2.3-4.7)
[2017-01-27 08:21] VITALS: TEMP 98.3
[2017-01-27] MEDS: Ferrous Sulfate 325 MG TAB PO SCH (08:45)
[2017-01-27] MEDS: Saccharomyces boulardii 250 MG CAP PO SCH (08:45)
[2017-01-27] MEDS: Potassium Chloride 20 MEQ TAB PO SCH (08:45)
[2017-01-27] MEDS: Gabapentin 300 MG CAP PO SCH (08:45)
[2017-01-27] MEDS: Multivit, Therapeutic 1 TAB PO SCH (08:45)
[2017-01-27] MEDS: Enoxaparin Sodium 30 MG/0.3 ML SYRINGE SC SCH (08:45)
[2017-01-27 11:52] VITALS: BP 135/83
== END 2017-01-27 12:57 | DRG 28 ==
LOC: ERS 21:00 → CCU 21:45 → SURG A 01-06 16:34
PROVIDERS: ADMIT Surgery; ATTEND Surgery
PROC: 06H03DZ Insertion of Intraluminal Device into Inferior Vena Cava, Percutaneous Approach (ICD-10-PCS; 2016-12-31)
PROC: B5191ZZ Fluoroscopy of Inferior Vena Cava using Low Osmolar Contrast (ICD-10-PCS; 2016-12-31)
PROC: 0RB30ZZ Excision of Cervical Vertebral Disc, Open Approach (ICD-10-PCS; principal; 2017-01-02)
PROC: 01N10ZZ Release Cervical Nerve, Open Approach (ICD-10-PCS; 2017-01-02)
PROC: 0RG10A0 Fusion of Cervical Vertebral Joint with Interbody Fusion Device, Anterior Approach, Anterior Column, Open Approach (ICD-10-PCS; 2017-01-02)
PROC: 30233R1 Transfusion of Nonautologous Platelets into Peripheral Vein, Percutaneous Approach (ICD-10-PCS; 2017-01-04)
PROC: 30233N1 Transfusion of Nonautologous Red Blood Cells into Peripheral Vein, Percutaneous Approach (ICD-10-PCS; 2017-01-10)
PROC: 0TJB8ZZ Inspection of Bladder, Via Natural or Artificial Opening Endoscopic (ICD-10-PCS; 2017-01-14)
PROC: 3E1K88Z Irrigation of Genitourinary Tract using Irrigating Substance, Via Natural or Artificial Opening Endoscopic (ICD-10-PCS; 2017-01-14)
PROC: 0T9B80Z Drainage of Bladder with Drainage Device, Via Natural or Artificial Opening Endoscopic (ICD-10-PCS; 2017-01-14)
DX: S14.124A Central cord syndrome at C4 level of cervical spinal cord, initial encounter (principal); B20 Human immunodeficiency virus [HIV] disease; G82.52 Quadriplegia, C1-C4 incomplete; N17.9 Acute kidney failure, unspecified; I82.433 Acute embolism and thrombosis of popliteal vein, bilateral; N18.4 Chronic kidney disease, stage 4 (severe); B37.0 Candidal stomatitis; K59.2 Neurogenic bowel, not elsewhere classified; E87.2 Acidosis; Z68.42 Body mass index [BMI] 45.0-49.9, adult; S06.0X1A Concussion with loss of consciousness of 30 minutes or less, initial encounter; J98.11 Atelectasis; I82.493 Acute embolism and thrombosis of other specified deep vein of lower extremity, bilateral; D69.6 Thrombocytopenia, unspecified; M48.02 Spinal stenosis, cervical region; I12.9 Hypertensive chronic kidney disease with stage 1 through stage 4 chronic kidney disease, or unspecified chronic kidney disease; E86.9 Volume depletion, unspecified; V43.52XA Car driver injured in collision with other type car in traffic accident, initial encounter; Y92.410 Unspecified street and highway as the place of occurrence of the external cause; M25.78 Osteophyte, vertebrae; M47.9 Spondylosis, unspecified; E66.9 Obesity, unspecified; E87.6 Hypokalemia; R31.0 Gross hematuria; R33.9 Retention of urine, unspecified; D50.9 Iron deficiency anemia, unspecified; D63.8 Anemia in other chronic diseases classified elsewhere; E83.42 Hypomagnesemia; R35.8 Other polyuria; Q54.8 Other hypospadias; M10.9 Gout, unspecified; E78.5 Hyperlipidemia, unspecified; M19.90 Unspecified osteoarthritis, unspecified site; S01.81XA Laceration without foreign body of other part of head, initial encounter; S91.011A Laceration without foreign body, right ankle, initial encounter; Z94.7 Corneal transplant status; T83.021A Displacement of indwelling urethral catheter, initial encounter; R19.7 Diarrhea, unspecified; N42.89 Other specified disorders of prostate
CPT/HCPCS: 36415; 36430; 37191; 70450; 70498; 71010; 71260; 72125; 72141; 72146; 72170; 74000; 74177; 75825; 76001; 76770; 76942; 80048; 80053; 80306; 80307; 81001; 81003; 81015; 82533; 82570; 83630; 83735; 83880; 83930; 83935; 84100; 84105; 84133; 84134; 84156; 84300; 85025; 85610; 85730; 86850; 86900; 86901; 87015; 87040; 87045; 87046; 87086; 87324; 87449; 87899; 89190; 90471; 90732; 93306; 93970; 94640; 94660; 96361; 96374; 96375; 99292; A4216; C1713; C1768; C1769; C9113; G0009; G0390; G8978-GP-CN; G8979-GP-CL; G8981-GP-CM; G8981-GP-CN; G8982-GP-CK; G8987-GO-CM; G8988-GO-CL; J0696; J1100; J1170; J1644; J1650; J1720; J2001; J2250; J2270; J2405; J2543; J2597; J2704; J2710; J3010; J3370; J3475; J3480; J3490; J7050; J7070; J7620; J9035; L1930; P9016; P9035; P9045; P9047; Q0167; S0028; S0179

== ENCOUNTER 2018-02-07 17:18 | Emergency (ER) | payer OTHER, SELFPAY ==
[2018-02-07 18:06] LABS: Bilirubin Negative (Negative); Blood, Urine Trace (Negative); Clarity CLOUDY (Clear); Glucose, Urine (Dipstick) Negative (Negative); Leukocyte Trace (Negative); Nitrite Positive (Negative); Protein, Urine (Dipstick) Negative (Neg-Trace); Specific Gravity, Urine 1.013 (1.002-1.036); Urobilinogen 0.2 mg/dL (0.2-1.0); pH, Urine 5.5 (5.0-9.0)
[2018-02-07 18:09] LABS: Bacteria/HPF 4+ HPF (None Seen); Hyaline Casts/LPF 0-3 HYALINE CAST LPF (0-3 Hyaline); RBC/HPF 0-3 HPF (0-3); Squamous Epithelial 0-3 HPF (0-3); WBC/HPF 0-3 HPF (0-3)
[2018-02-07] MEDS ORDERED: Mag-Al 1200 mg/1200 mg/30 ML UDCUP ONE (18:19)
[2018-02-07] MEDS ORDERED: Pantoprazole 40 MG VIAL ONE (18:19)
[2018-02-07] MEDS ORDERED: Lidocaine Viscous Sol 2% 15 ml UD Cup ONE (18:19)
[2018-02-07 18:44] LABS: #Basophils 0.1 thou/uL (0.0-0.2); #Eosinphils 0.1 thou/uL (0.0-0.7); #Lymphocytes 3.2 thou/uL (1.20-3.40); #Monocytes 0.8 thou/uL (0.11-0.59); #Neutrophils 4.4 thou/uL (1.40-6.50); %Basophils 0.8 % (0.0-1.0); %Eosinophils 0.9 % (0.0-10.0); %Lymphocytes 37.4 % (21.0-51.0); %Monocytes 9.4 % (0.0-10.0); %Neutrophils 51.4 % (42.0-75.0); Hemoglobin 11.4 g/dL (14.0-18.0); Mean Corpuscular HGB CONC 30.9 g/dL (32.0-36.0); Mean Corpuscular Hemoglobin 25.3 pg (27.0-31.0); Mean Corpuscular Volume 81.7 fL (78.0-98.0); Mean Platelet Volume 7.5 fL (7.4-10.4); Platelet Count 273 thou/uL (130-400); RBC Distribution Width 14.3 % (11.5-14.5); White Blood Cell (WBC) Count 8.6 thou/uL (4.8-10.8)
[2018-02-07 19:26] LABS: ALT (SGPT) 33 U/L (8-55); AST (SGOT) 23 U/L (5-34); Albumin 4.7 g/dL (3.5-5.0); Alkaline Phosphatase 89 U/L (40-150); Anion Gap 14 mmol/L (10-20); BUN (Urea Nitrogen) 26 mg/dL (8.9-20.6); Bilirubin, Total 0.5 mg/dL (0.2-1.2); Calc. Creatinine Clearance 0 mL/min (70-130); Calcium 10.1 mg/dL (7.8-10.44); Carbon Dioxide 24 mmol/L (22-29); Chloride 100 mmol/L (98-107); Estimated GFR-MDRD 54; Globulin 4.2 g/dL (2.4-3.5); Glucose 84 mg/dL (70-105); Lipase 30 U/L (8-78); Potassium 4.6 mmol/L (3.5-5.1); Protein, Total 8.9 g/dL (6.0-8.3); Sodium 133 mmol/L (136-145)
--- NOTE | 2018-02-07 22:14 | RAD ---
SUPINE ABDOMINAL RADIOGRAPH 02/07/18 HISTORY: Epigastric abdominal pain for one week. COMPARISON: 01/18/17. FINDINGS: There is mild gaseous distention of the colon, but the degree of gaseous distention is much less than on study of 01/18/17. Bowel gas pattern is overall otherwise nonspecific. The visualized lung bases a re clear. IVC filter is again seen overlying the abdomen to the right of midline at the L3-4 level. P hleboliths overlie the pelvis. Mild degenerative changes are noted in the spine. No other interval ch lita. IMPRESSION: Mild nonspecific gaseous distention of the colon. Bowel gas pattern is otherwise nonspecific. POS: [facility]
== END 2018-02-07 20:41 | disposition home or self-care (01) ==
LOC: ERS 17:18
DX: R10.13 Epigastric pain (principal); N39.0 Urinary tract infection, site not specified; B20 Human immunodeficiency virus [HIV] disease; Z79.899 Other long term (current) drug therapy
CPT/HCPCS: 36415; 74018; 80053; 81003; 81015; 83690; 85025; 87077; 87086; 87186; 96374; C9113

== ENCOUNTER 2018-02-11 09:15 | Inpatient (IN) | payer SELFPAY ==
[2018-02-11 09:59] LABS: #Basophils 0.1 thou/uL (0.0-0.2); #Eosinphils 0.1 thou/uL (0.0-0.7); #Lymphocytes 2.3 thou/uL (1.20-3.40); #Monocytes 0.7 thou/uL (0.11-0.59); %Basophils 1.7 % (0.0-1.0); %Eosinophils 1.4 % (0.0-10.0); %Lymphocytes 31.5 % (21.0-51.0); %Monocytes 10.3 % (0.0-10.0); %Neutrophils 55.2 % (42.0-75.0); Hemoglobin 10.7 g/dL (14.0-18.0); Mean Corpuscular HGB CONC 30.9 g/dL (32.0-36.0); Mean Corpuscular Hemoglobin 25.7 pg (27.0-31.0); Mean Corpuscular Volume 83.3 fL (78.0-98.0); Mean Platelet Volume 7.6 fL (7.4-10.4); Platelet Count 275 thou/uL (130-400); RBC Distribution Width 14.3 % (11.5-14.5); Red Blood Cell (RBC) Count 4.18 mill/uL (4.70-6.10); White Blood Cell (WBC) Count 7.2 thou/uL (4.8-10.8)
[2018-02-11] MEDS ORDERED: MEROPENEM 1 GM/50 ML 1 GM in Premix Bag 1 BAG IVPB SCH (10:00)
[2018-02-11 10:06] LABS: Bilirubin Negative (Negative); Blood, Urine Small (Negative); Clarity CLOUDY (Clear); Glucose, Urine (Dipstick) Negative (Negative); Leukocyte Large (Negative); Nitrite Negative (Negative); Protein, Urine (Dipstick) Negative (Neg-Trace); Specific Gravity, Urine 1.011 (1.002-1.036); Urobilinogen 0.2 mg/dL (0.2-1.0); pH, Urine 5.5 (5.0-9.0)
[2018-02-11 10:08] LABS: Bacteria/HPF 4+ HPF (None Seen); Hyaline Casts/LPF 0-3 HYALINE CAST LPF (0-3 Hyaline); Pathc Cast-AUWi Flag 0.14 (0-2.49); Squamous Epithelial None Seen HPF (0-3)
[2018-02-11 10:20] LABS: ALT (SGPT) 35 U/L (8-55); AST (SGOT) 23 U/L (5-34); Albumin 4.4 g/dL (3.5-5.0); Alkaline Phosphatase 91 U/L (40-150); Anion Gap 12 mmol/L (10-20); BUN (Urea Nitrogen) 16 mg/dL (8.9-20.6); Bilirubin, Total 0.8 mg/dL (0.2-1.2); Calc. Creatinine Clearance 0 mL/min (70-130); Calcium 10.1 mg/dL (7.8-10.44); Carbon Dioxide 27 mmol/L (22-29); Chloride 100 mmol/L (98-107); Estimated GFR-MDRD 76; Globulin 3.9 g/dL (2.4-3.5); Glucose 97 mg/dL (70-105); Potassium 4.5 mmol/L (3.5-5.1); Protein, Total 8.3 g/dL (6.0-8.3); Sodium 134 mmol/L (136-145)
--- NOTE | 2018-02-11 10:21 | RAD ---
PORTABLE CHEST: Date: 02/11/18 HISTORY: Mental status change. COMPARISON: 01/09/17. FINDINGS: The lung hobbs are clear. No infiltrate identified. Heart and mediastinum unremarkable. IMPRESSION: No acute process identified. POS: [facility]
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
[2018-02-11] MEDS ORDERED: Eucerin (Mineral Oil/Petrolatum,White) 30 gm Jar TOP PRN (13:13)
[2018-02-11] MEDS ORDERED: Senokot S 8.6-50 MG TAB PO PRN (13:13)
[2018-02-11] MEDS ORDERED: Bisacodyl 5 MG TAB PO PRN (13:13)
[2018-02-11] MEDS ORDERED: Ondansetron PF 4 MG/2 ML Vial IVP PRN (13:13)
[2018-02-11] MEDS ORDERED: hydrALAZINE 20 MG/ML VIAL SLOW IVP PRN (13:13)
[2018-02-11] MEDS ORDERED: Bisacodyl 10 MG SUPP PR PRN (13:13)
[2018-02-11] MEDS ORDERED: Calcium Carbonate 500 MG ChewTAB PO PRN (13:13)
[2018-02-11] MEDS ORDERED: Acetaminophen 325 MG TAB PO PRN (13:13)
[2018-02-11] MEDS ORDERED: Cepastat Lozenges 1 LOZ PO PRN (13:13)
[2018-02-11] MEDS ORDERED: Ondansetron ODT 4 MG TAB PO PRN (13:13)
[2018-02-11] MEDS ORDERED: Diabetic Tussin 200 MG/10 ML UDCUP PO PRN (13:13)
[2018-02-11] MEDS ORDERED: Loperamide HCl 2 MG CAP PO PRN (13:13)
[2018-02-11] MEDS ORDERED: Artificial Tears 18 DROP/0.9 ML EA EYE PRN (13:13)
[2018-02-11] MEDS ORDERED: Sodium Chloride 0.65% Nasal 44 ML BOT EA NARE PRN (13:13)
[2018-02-11] MEDS ORDERED: Loratadine 10 MG TAB PO PRN (13:13)
[2018-02-11] MEDS ORDERED: Zolpidem Tartrate 5 MG TAB PO PRN (13:13)
[2018-02-11 13:26] VITALS: BMI 37.1
[2018-02-11] MEDS ORDERED: Baclofen 10 MG TAB PO SCH (13:30)
[2018-02-11] MEDS: Gabapentin 300 MG CAP PO SCH ×2 (14:45→21:36)
[2018-02-11] MEDS: Sodium Chloride 0.9% 1,000 ML IV SCH (14:45)
[2018-02-11] MEDS: HYDROcodone/Acetaminophen 5/325 mg Tablet PO PRN ×2 (14:52→23:50)
[2018-02-11] MEDS: MEROPENEM 1 GM/50 ML 1 GM in Premix Bag 1 BAG IVPB SCH (17:08)
[2018-02-11] MEDS ORDERED: Heparin 1,000 UNITS/ML VIAL ONE (17:09)
[2018-02-11] MEDS: Baclofen 10 MG TAB PO SCH ×2 (17:09→23:45)
[2018-02-11] MEDS ORDERED: Apixaban 5 MG TAB PO SCH (21:00)
[2018-02-11] MEDS ORDERED: Atorvastatin Calcium 10 MG TAB PO SCH (21:00)
[2018-02-11] MEDS: Famotidine 20 MG TAB PO SCH (21:36)
[2018-02-11] MEDS ORDERED: DULoxetine 30 MG CAP PO SCH (21:45)
[2018-02-12] MEDS: MEROPENEM 1 GM/50 ML 1 GM in Premix Bag 1 BAG IVPB SCH ×3 (01:46→17:44)
[2018-02-12] MEDS: Baclofen 10 MG TAB PO SCH ×4 (04:54→21:16)
[2018-02-12] MEDS: Sodium Chloride 0.9% 1,000 ML IV SCH ×3 (04:54→21:17)
[2018-02-12 05:49] LABS: #Basophils 0.1 thou/uL (0.0-0.2); #Eosinphils 0.1 thou/uL (0.0-0.7); #Lymphocytes 2.7 thou/uL (1.20-3.40); #Monocytes 0.5 thou/uL (0.11-0.59); #Neutrophils 3.5 thou/uL (1.40-6.50); %Basophils 0.8 % (0.0-1.0); %Eosinophils 1.5 % (0.0-10.0); %Lymphocytes 39.3 % (21.0-51.0); %Monocytes 7.3 % (0.0-10.0); Hemoglobin 9.7 g/dL (14.0-18.0); Mean Corpuscular HGB CONC 29.9 g/dL (32.0-36.0); Mean Corpuscular Hemoglobin 24.7 pg (27.0-31.0); Mean Corpuscular Volume 82.5 fL (78.0-98.0); Mean Platelet Volume 7.7 fL (7.4-10.4); Platelet Count 280 thou/uL (130-400); RBC Distribution Width 14.3 % (11.5-14.5); Red Blood Cell (RBC) Count 3.92 mill/uL (4.70-6.10); White Blood Cell (WBC) Count 6.8 thou/uL (4.8-10.8)
[2018-02-12 05:54] LABS: Anion Gap 12 mmol/L (10-20); BUN (Urea Nitrogen) 15 mg/dL (8.9-20.6); Calc. Creatinine Clearance 165 mL/min (70-130); Calcium 9.6 mg/dL (7.8-10.44); Carbon Dioxide 26 mmol/L (22-29); Chloride 103 mmol/L (98-107); Estimated GFR-MDRD 86; Glucose 150 mg/dL (70-105); Sodium 137 mmol/L (136-145)
[2018-02-12] MEDS ORDERED: Furosemide 40 MG TAB PO SCH (07:30)
[2018-02-12] MEDS: Famotidine 20 MG TAB PO SCH ×2 (08:51→21:14)
[2018-02-12] MEDS: Gabapentin 300 MG CAP PO SCH ×2 (08:51→21:16)
[2018-02-12] MEDS: Saccharomyces boulardii 250 MG CAP PO SCH (08:51)
[2018-02-12] MEDS: Enoxaparin Sodium 40 MG/0.4 ML SYRINGE SC SCH (08:51)
[2018-02-12] MEDS: Allopurinol 300 MG TAB PO SCH (08:51)
[2018-02-12] MEDS: traMADol HCl 50 MG TAB PO PRN ×2 (08:57→23:58)
[2018-02-12] MEDS ORDERED: Oxybutynin ER 5 MG TAB PO SCH (09:00)
[2018-02-12] MEDS ORDERED: Allopurinol 300 MG TAB PO SCH (09:00)
[2018-02-12] MEDS ORDERED: DULoxetine 30 MG CAP PO SCH (09:00)
[2018-02-12] MEDS ORDERED: Saccharomyces boulardii 250 MG CAP PO SCH (09:00)
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
[2018-02-12] MEDS: HYDROcodone/Acetaminophen 5/325 mg Tablet PO PRN ×2 (10:49→21:28)
[2018-02-12] MEDS ORDERED: Iopamidol 370 76% 100 ML VIAL ONE (12:03)
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
--- NOTE | 2018-02-12 16:37 | ULT ---
RIGHT UPPER QUADRANT ULTRASOUND: HISTORY: Epigastric pain. FINDINGS: Exam is limited due to body habitus. The pancreas and the left lobe of the liver are not satisfactor mynor visualized. The right lobe of the liver demonstrates homogeneous echotexture, without focal mass or intrahepatic ductal dilatation. No gallstones, gallbladder wall thickening, or pericholecystic f luid is seen. The common duct measures 3 The right kidney is unremarkable. No free fluid is seen in the Majano pouch. IMPRESSION: No evidence of cholelithiasis. POS: [facility]
--- NOTE | 2018-02-12 19:14 | CT ---
CT ABDOMEN WITH CONTRAST: CT PELVIS WITH CONTRAST: HISTORY: Abdominal pain x1 week. Evaluate for obstruction versus pyelonephritis. COMPARISON: 02/19/2017 FINDINGS: ABDOMEN: Chronic changes in the lung bases. Normal heart size. No pericardial effusion. The visua lized aorta has a normal caliber. The portal vein is patent. The gallbladder is contracted. The liver, spleen, pancreas, and adrenal glands have appropriate enhancement. No gastrohepatic, retrocrural, or periportal lymphadenopathy. Note is made of an IVC filter. Symmetric enhancement of the kidneys. Bilaterally, no obstructive uropathy. Note is made of a supra pubic catheter. There is no evidence of a striated nephrogram phase to suggest pyelonephritis. Ther e is serpiginous tubular structure along the course of the proximal right ureter. This finding is si milar to a previous examination and is presumed to be a prominent right gonadal vein. The gastric mucosa, duodenum, and multiple normal caliber small bowel loops are noted. No evidence o f small bowel obstruction. The ileocecal junction is normal. An appendix is difficult to appreciate . Padam-lly-ovxk, no inflammation at the cecal apex. Moderate amount of fecal material in the colon . Correlate for constipation. PELVIS: A suprapubic catheter is noted. Decompressed urinary bladder. No pelvic mass, lymphadenopa thy, free air, or free fluid. No lytic or blastic lesions in the osseous structures. IMPRESSION: No acute abnormality in the abdomen or pelvis. POS: [facility]
[2018-02-12] MEDS ORDERED: Elviteg/Cob/Emtri/Tenof Alafen [Genvoya Tablet] 1 EACH PO SCH (21:00)
[2018-02-12] MEDS ORDERED: Simvastatin 40 MG TAB PO SCH (21:00)
[2018-02-12] MEDS ORDERED: [UNRECOGNIZED DRUG - OTHER] PO SCH (21:00)
[2018-02-12] MEDS: Atorvastatin Calcium 20 MG TAB PO SCH (21:13)
[2018-02-12] MEDS: DULoxetine 30 MG CAP PO SCH (21:17)
[2018-02-13] MEDS: MEROPENEM 1 GM/50 ML 1 GM in Premix Bag 1 BAG IVPB SCH ×3 (02:00→17:55)
[2018-02-13] MEDS: HYDROcodone/Acetaminophen 5/325 mg Tablet PO PRN ×2 (02:16→07:57)
[2018-02-13] MEDS: Baclofen 10 MG TAB PO SCH ×3 (07:57→21:10)
[2018-02-13] MEDS: Allopurinol 300 MG TAB PO SCH (07:57)
[2018-02-13] MEDS: Saccharomyces boulardii 250 MG CAP PO SCH (07:57)
[2018-02-13] MEDS: Famotidine 20 MG TAB PO SCH ×2 (07:57→21:10)
[2018-02-13] MEDS: Enoxaparin Sodium 40 MG/0.4 ML SYRINGE SC SCH (07:59)
[2018-02-13] MEDS: Gabapentin 300 MG CAP PO SCH ×2 (07:59→21:10)
[2018-02-13] MEDS: Sodium Chloride 0.9% 1,000 ML IV SCH ×2 (07:59→22:33)
--- NOTE | 2018-02-13 08:25 | PDOC.PN ---
- Subjective Encounter Start Date: 02/13/18 Encounter Start Time: 08:20 Patient seen and examined. No new complaints. No overnight events - Objective Resuscitation Status: Resuscitation Status FULL:Full Resuscitation MAR Reviewed: Yes Vital Signs & Weight: Vital Signs (12 hours) Temp Pulse Resp BP BP Pulse Ox 02/13/18 07:07 97.7 F 72 18 109/72 93 L 02/13/18 00:00 97.5 F L 89 20 147/85 H 99 Weight Weight 313 lb 3 oz I&O: 02/12/18 02/13/18 02/14/18 06:59 06:59 06:59 Intake Total 1050 2775 Output Total 500 3000 Balance 550 -225 Result Diagrams: 02/12/18 04:22 02/12/18 04:22 Radiology Reviewed by me: Yes (CT abdomen noted) Phys Exam - Physical Examination Constitutional: NAD HEENT: PERRLA, moist MMs, sclera anicteric Neck: no JVD, supple Respiratory: no wheezing, no rales, no rhonchi Cardiovascular: RRR, no significant murmur, no rub Gastrointestinal: soft, non-tender, no distention, positive bowel sounds suprapubic catheter+ Musculoskeletal: no edema, pulses present quadriplegia Lymphatic: no nodes Psychiatric: normal affect, A&O x 3 Skin: no rash, normal turgor Dx/Plan (1) Urinary tract infection due to ESBL Klebsiella Code(s): N39.0 - URINARY TRACT INFECTION, SITE NOT SPECIFIED; B96.89 - OTH BACTERIAL AGENTS THE CAUSE OF DISEASES CLASSD ELSWHR Status: Acute (2) Anxiety and depression Code(s): F41.9 - ANXIETY DISORDER, UNSPECIFIED; F32.9 - MAJOR DEPRESSIVE DISORDER, SINGLE EPISODE, UNSPECIFIED Status: Chronic (3) 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 Code(s): GUH9293 - Status: Chronic (4) Dyslipidemia Code(s): E78.5 - HYPERLIPIDEMIA, UNSPECIFIED Status: Chronic (5) HIV (human immunodeficiency virus infection) Status: Chronic (6) Neurogenic bladder Code(s): N31.9 - NEUROMUSCULAR DYSFUNCTION OF BLADDER, UNSPECIFIED Status: Chronic (7) Obesity (BMI 30-39.9) Code(s): E66.9 - OBESITY, UNSPECIFIED Status: Chronic (8) Presence of suprapubic catheter Code(s): Z93.59 - OTHER CYSTOSTOMY STATUS Status: Chronic (9) Epigastric abdominal pain Code(s): R10.13 - EPIGASTRIC PAIN Status: Acute - Plan cont current plan of care, continue antibiotics * continue meropenam * medication reviewed as below * symptomatic treatment * ID recommendation noted. Review of Systems - Review of Systems Constitutional: negative: fever, chills, sweats, weakness, malaise, other ENT: negative: Ear Pain, Ear Discharge, Nose Pain, Nose Discharge, Nose Congestion, Mouth Pain, Mouth Swelling, Throat Pain, Throat Swelling, Other Respiratory: negative: Cough, Dry, Shortness of Breath, Hemoptysis, SOB with Excertion, Pleuritic Pain, Sputum, Wheezing Cardiovascular: negative: chest pain, palpitations, orthopnea, paroxysmal nocturnal dyspnea, edema, light headedness, other Gastrointestinal: negative: Nausea, Vomiting, Abdominal Pain, Diarrhea, Constipation, Melena, Hematochezia, Other Genitourinary: negative: Dysuria, Frequency, Incontinence, Hematuria, Retention , Other Musculoskeletal: negative: Neck Pain, Shoulder Pain, Arm Pain, Back Pain, Hand Pain, Leg Pain, Foot Pain, Other - Medications/Allergies Allergies/Adverse Reactions: Allergies Allergy/AdvReac Type Severity Reaction Status Date / Time NSAIDS (Non-Steroidal Allergy Rash Verified 02/11/18 13:34 Anti-Inflamma Medications: Current Medications Acetaminophen (Tylenol) 650 mg PO Q4H PRN PRN Reason: Headache/Fever/Mild Pain (1-3) Hydrocodone Bitart/Acetaminophen ([place] 5/325) 1 tab PO Q4H PRN PRN Reason: Moderate Pain (4-6) Last Admin: 02/13/18 07:57 Dose: 1 tab Allopurinol (Zyloprim) 300 mg PO DAILY [facility] Last Admin: 02/13/18 07:57 Dose: 300 mg Artificial Tears (Tears Naturale) 2 drop EA EYE PRN PRN PRN Reason: Dry Eyes Atorvastatin Calcium (Lipitor) 20 mg PO HS [facility] Last Admin: 02/12/18 21:13 Dose: 20 mg Baclofen (Lioresal) 10 mg PO TID [facility] Last Admin: 02/13/18 07:57 Dose: 10 mg Bisacodyl (Dulcolax) 10 mg PO DAILYPRN PRN PRN Reason: Constipation Bisacodyl (Dulcolax) 10 mg [place] DAILYPRN PRN PRN Reason: Constipation Calcium Carbonate (Tums) 1,000 mg PO Q4H PRN PRN Reason: Heartburn or Indigestion Duloxetine HCl (Cymbalta) 30 mg PO HS [facility] Last Admin: 02/12/18 21:17 Dose: 30 mg Enoxaparin Sodium (Lovenox) 40 mg SC 0900 [facility] Last Admin: 02/13/18 07:59 Dose: 40 mg Famotidine (Pepcid) 20 mg PO BID [facility] Last Admin: 02/13/18 07:57 Dose: 20 mg Gabapentin (Neurontin) 300 mg PO BID [facility] Last Admin: 02/13/18 07:59 Dose: 300 mg Guaifenesin (Robitussin Sf) 200 mg PO Q4H PRN PRN Reason: Cough Hydralazine HCl (Apresoline) 10 mg SLOW IVP Q4H PRN PRN Reason: SBP > 180 and HR < 70 Sodium Chloride (Normal Saline 0.9%) 1,000 mls @ 75 mls/hr IV .[id number] [facility] Last Admin: 02/13/18 07:59 Dose: 1,000 mls Meropenem 1 gm/ Device 50 mls @ 100 mls/hr IVPB 0200,1000,1800 [facility] Last Admin: 02/13/18 08:01 Dose: 50 mls Loperamide HCl (Imodium) 2 mg PO PRN PRN PRN Reason: Diarrhea/Loose Stools Loratadine (Claritin) 10 mg PO DAILYPRN PRN PRN Reason: Sinus Symptoms Mineral Oil/White Petrolatum (Eucerin Cream) 0 gm TOP BIDPRN PRN PRN Reason: Dry Skin Ondansetron HCl (Zofran Odt) 4 mg PO Q6H PRN PRN Reason: Nausea/Vomiting Ondansetron HCl (Zofran) 4 mg IVP Q6H PRN PRN Reason: Nausea/Vomiting Elviteg/Cob/Emtri/Tenof Alafen [ Genvoya Tablet] 1 Each 0 each PO [facility] Saccharomyces Boulardii (Florastor) 250 mg PO DAILY [facility] Last Admin: 02/13/18 07:57 Dose: 250 mg Senna/Docusate Sodium (Senokot S) 2 tab PO BID PRN PRN Reason: Constipation Sodium Chloride ([place] Nasal [place] 0.65%) 0 ml EA NARE QIDPRN PRN PRN Reason: Nasal Congestion Sodium Chloride (Flush - Normal Saline) 10 ml IVF Q12HR [facility] Last Admin: 02/13/18 07:59 Dose: 10 ml Sodium Chloride (Flush - Normal Saline) 10 ml IVF PRN PRN PRN Reason: Saline Flush Throat Lozenges (Cepastat Lozenges) 1 mc PO Q2H PRN PRN Reason: Sore Throat Tramadol HCl (Ultram) 100 mg PO Q6H PRN PRN Reason: Pain Last Admin: 02/12/18 23:58 Dose: 100 mg Zolpidem Tartrate (Ambien) 5 mg PO HSPRN PRN PRN Reason: Insomnia
[2018-02-13 12:16] LABS: %CD4 (Helper/Inducer) 14.1 % (30.8-58.5); Absolute CD4 367 /uL (359-1519); Lymphocytes/Gated Cell Count 2.6 x10E3/uL (0.7-3.1); Total Lymphocyte 41 % (Not Estab.); WBC Total Count 6.3 x10E3/uL (3.4-10.8)
[2018-02-13] MEDS ORDERED: HYDROcodone/Acetaminophen 10/325 mg Tablet PO PRN (14:26)
[2018-02-13] MEDS: traMADol HCl 50 MG TAB PO PRN ×2 (15:26→21:11)
[2018-02-13] MEDS: HYDROcodone/Acetaminophen 10/325 mg Tablet PO PRN ×2 (17:59→22:24)
[2018-02-13] MEDS: DULoxetine 30 MG CAP PO SCH (21:10)
[2018-02-13] MEDS: Atorvastatin Calcium 20 MG TAB PO SCH (21:10)
[2018-02-14] MEDS: MEROPENEM 1 GM/50 ML 1 GM in Premix Bag 1 BAG IVPB SCH ×3 (02:00→17:11)
[2018-02-14] MEDS: HYDROcodone/Acetaminophen 10/325 mg Tablet PO PRN ×2 (05:25→21:27)
[2018-02-14] MEDS: Allopurinol 300 MG TAB PO SCH (08:24)
[2018-02-14] MEDS: Famotidine 20 MG TAB PO SCH ×2 (08:24→21:27)
[2018-02-14] MEDS: Baclofen 10 MG TAB PO SCH ×3 (08:25→21:27)
[2018-02-14] MEDS: Saccharomyces boulardii 250 MG CAP PO SCH (08:25)
[2018-02-14] MEDS: Gabapentin 300 MG CAP PO SCH ×2 (08:25→21:27)
[2018-02-14] MEDS: Enoxaparin Sodium 40 MG/0.4 ML SYRINGE SC SCH (08:25)
[2018-02-14] MEDS: Sodium Chloride 0.9% 1,000 ML IV SCH (08:28)
[2018-02-14] MEDS: traMADol HCl 50 MG TAB PO PRN ×2 (08:29→14:33)
--- NOTE | 2018-02-14 09:38 | PDOC.PN ---
- Subjective Encounter Start Date: 02/14/18 Encounter Start Time: 08:20 Patient seen and examined. No new complaints. No overnight events - Objective Resuscitation Status: Resuscitation Status FULL:Full Resuscitation MAR Reviewed: Yes Vital Signs & Weight: Vital Signs (12 hours) Temp Pulse Resp BP BP Pulse Ox 02/14/18 06:53 97.5 F L 66 19 95/65 95 02/14/18 05:53 97.7 F 64 20 119/80 95 Weight Weight 313 lb 3 oz I&O: 02/13/18 02/14/18 02/15/18 06:59 06:59 06:59 Intake Total 4175 3450 Output Total 5000 5000 Balance -825 -8200 Result Diagrams: 02/12/18 04:22 02/12/18 04:22 Phys Exam - Physical Examination Constitutional: NAD HEENT: PERRLA, moist MMs, sclera anicteric Neck: no JVD, supple Respiratory: no wheezing, no rales, no rhonchi Cardiovascular: RRR, no significant murmur, no rub Gastrointestinal: soft, non-tender, no distention, positive bowel sounds suprapubic catheter+ Musculoskeletal: no edema, pulses present quadriplegia Psychiatric: normal affect, A&O x 3 Skin: no rash, normal turgor Dx/Plan (1) Urinary tract infection due to ESBL Klebsiella Code(s): N39.0 - URINARY TRACT INFECTION, SITE NOT SPECIFIED; B96.89 - OTH BACTERIAL AGENTS THE CAUSE OF DISEASES CLASSD ELSWHR Status: Acute (2) Anxiety and depression Code(s): F41.9 - ANXIETY DISORDER, UNSPECIFIED; F32.9 - MAJOR DEPRESSIVE DISORDER, SINGLE EPISODE, UNSPECIFIED Status: Chronic (3) 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 Code(s): [id number] - Status: Chronic (4) Dyslipidemia Code(s): E78.5 - HYPERLIPIDEMIA, UNSPECIFIED Status: Chronic (5) HIV (human immunodeficiency virus infection) Status: Chronic (6) Neurogenic bladder Code(s): N31.9 - NEUROMUSCULAR DYSFUNCTION OF BLADDER, UNSPECIFIED Status: Chronic (7) Obesity (BMI 30-39.9) Code(s): E66.9 - OBESITY, UNSPECIFIED Status: Chronic (8) Presence of suprapubic catheter Code(s): Z93.59 - OTHER CYSTOSTOMY STATUS Status: Chronic (9) Epigastric abdominal pain Code(s): R10.13 - EPIGASTRIC PAIN Status: Acute - Plan cont current plan of care, continue antibiotics, PT/OT, social worker aide * start PT/OT * medication reviewed as below * symptomatic treatment * continue meropenam * Dr Felix to decide duration of therapy and need of picc line. Review of Systems - Review of Systems Eyes: negative: Pain, Vision Change, Conjunctivae Inflammation, Eyelid Inflammation, Redness, Other ENT: negative: Ear Pain, Ear Discharge, Nose Pain, Nose Discharge, Nose Congestion, Mouth Pain, Mouth Swelling, Throat Pain, Throat Swelling, Other Respiratory: negative: Cough, Dry, Shortness of Breath, Hemoptysis, SOB with Excertion, Pleuritic Pain, Sputum, Wheezing Cardiovascular: negative: chest pain, palpitations, orthopnea, paroxysmal nocturnal dyspnea, edema, light headedness, other Gastrointestinal: negative: Nausea, Vomiting, Abdominal Pain, Diarrhea, Constipation, Melena, Hematochezia, Other Genitourinary: negative: Dysuria, Frequency, Incontinence, Hematuria, Retention , Other Musculoskeletal: negative: Neck Pain, Shoulder Pain, Arm Pain, Back Pain, Hand Pain, Leg Pain, Foot Pain, Other Skin: negative: Rash, Lesions, Steven, Bruising, Other - Medications/Allergies Allergies/Adverse Reactions: Allergies Allergy/AdvReac Type Severity Reaction Status Date / Time NSAIDS (Non-Steroidal Allergy Rash Verified 02/11/18 13:34 Anti-Inflamma Medications: Current Medications Acetaminophen (Tylenol) 650 mg PO Q4H PRN PRN Reason: Headache/Fever/Mild Pain (1-3) Hydrocodone Bitart/Acetaminophen ([place] 10/325) 1 tab PO Q4H PRN PRN Reason: Pain 4-6 Last Admin: 02/14/18 05:25 Dose: 1 tab Allopurinol (Zyloprim) 300 mg PO DAILY [facility] Last Admin: 02/14/18 08:24 Dose: 300 mg Artificial Tears (Tears Naturale) 2 drop EA EYE PRN PRN PRN Reason: Dry Eyes Atorvastatin Calcium (Lipitor) 20 mg PO HS [facility] Last Admin: 02/13/18 21:10 Dose: 20 mg Baclofen (Lioresal) 10 mg PO TID [facility] Last Admin: 02/14/18 08:25 Dose: 10 mg Bisacodyl (Dulcolax) 10 mg PO DAILYPRN PRN PRN Reason: Constipation Bisacodyl (Dulcolax) 10 mg [place] DAILYPRN PRN PRN Reason: Constipation Calcium Carbonate (Tums) 1,000 mg PO Q4H PRN PRN Reason: Heartburn or Indigestion Duloxetine HCl (Cymbalta) 30 mg PO HS [facility] Last Admin: 02/13/18 21:10 Dose: 30 mg Enoxaparin Sodium (Lovenox) 40 mg SC 0900 [facility] Last Admin: 02/14/18 08:25 Dose: 40 mg Famotidine (Pepcid) 20 mg PO BID [facility] Last Admin: 02/14/18 08:24 Dose: 20 mg Gabapentin (Neurontin) 300 mg PO BID [facility] Last Admin: 02/14/18 08:25 Dose: 300 mg Guaifenesin (Robitussin Sf) 200 mg PO Q4H PRN PRN Reason: Cough Hydralazine HCl (Apresoline) 10 mg SLOW IVP Q4H PRN PRN Reason: SBP > 180 and HR < 70 Sodium Chloride (Normal Saline 0.9%) 1,000 mls @ 75 mls/hr IV .[id number] [facility] Last Admin: 02/14/18 08:28 Dose: 1,000 mls Meropenem 1 gm/ Device 50 mls @ 100 mls/hr IVPB 0200,1000,1800 [facility] Last Admin: 02/14/18 08:25 Dose: 50 mls Loperamide HCl (Imodium) 2 mg PO PRN PRN PRN Reason: Diarrhea/Loose Stools Loratadine (Claritin) 10 mg PO DAILYPRN PRN PRN Reason: Sinus Symptoms Mineral Oil/White Petrolatum (Eucerin Cream) 0 gm TOP BIDPRN PRN PRN Reason: Dry Skin Ondansetron HCl (Zofran Odt) 4 mg PO Q6H PRN PRN Reason: Nausea/Vomiting Ondansetron HCl (Zofran) 4 mg IVP Q6H PRN PRN Reason: Nausea/Vomiting Elviteg/Cob/Emtri/Tenof Alafen [ Genvoya Tablet] 1 Each 0 each PO [facility] Saccharomyces Boulardii (Florastor) 250 mg PO DAILY [facility] Last Admin: 02/14/18 08:25 Dose: 250 mg Senna/Docusate Sodium (Senokot S) 2 tab PO BID PRN PRN Reason: Constipation Sodium Chloride ([place] Nasal [place] 0.65%) 0 ml EA NARE QIDPRN PRN PRN Reason: Nasal Congestion Sodium Chloride (Flush - Normal Saline) 10 ml IVF Q12HR [facility] Last Admin: 02/14/18 08:25 Dose: Not Given Sodium Chloride (Flush - Normal Saline) 10 ml IVF PRN PRN PRN Reason: Saline Flush Throat Lozenges (Cepastat Lozenges) 1 mc PO Q2H PRN PRN Reason: Sore Throat Tramadol HCl (Ultram) 100 mg PO Q6H PRN PRN Reason: Pain Last Admin: 02/14/18 08:29 Dose: 100 mg Zolpidem Tartrate (Ambien) 5 mg PO HSPRN PRN PRN Reason: Insomnia
[2018-02-14 16:13] LABS: LOG10 HIV-1 RNA 1.477 (.)
[2018-02-14] MEDS: Atorvastatin Calcium 20 MG TAB PO SCH (21:26)
[2018-02-14] MEDS: DULoxetine 30 MG CAP PO SCH (21:27)
[2018-02-15] MEDS: MEROPENEM 1 GM/50 ML 1 GM in Premix Bag 1 BAG IVPB SCH ×3 (02:23→17:04)
[2018-02-15] MEDS: Sodium Chloride 0.9% 1,000 ML IV SCH ×2 (02:26→08:27)
[2018-02-15] MEDS: traMADol HCl 50 MG TAB PO PRN ×2 (02:28→19:13)
[2018-02-15] MEDS: Allopurinol 300 MG TAB PO SCH (08:09)
[2018-02-15] MEDS: Saccharomyces boulardii 250 MG CAP PO SCH (08:10)
[2018-02-15] MEDS: Gabapentin 300 MG CAP PO SCH ×2 (08:10→20:26)
[2018-02-15] MEDS: HYDROcodone/Acetaminophen 10/325 mg Tablet PO PRN ×2 (08:10→20:31)
[2018-02-15] MEDS: Enoxaparin Sodium 40 MG/0.4 ML SYRINGE SC SCH (08:10)
[2018-02-15] MEDS: Baclofen 10 MG TAB PO SCH ×3 (08:10→20:26)
[2018-02-15] MEDS: Famotidine 20 MG TAB PO SCH ×2 (08:10→20:26)
--- NOTE | 2018-02-15 11:15 | PDOC.PN ---
- Subjective Encounter Start Date: 02/15/18 Encounter Start Time: 07:00 Subjective: feels better, no sob but has abd dyscomfort ?gas -: wants PT to work with him - Objective Resuscitation Status: Resuscitation Status FULL:Full Resuscitation MAR Reviewed: Yes Vital Signs & Weight: Vital Signs (12 hours) Temp Pulse Resp BP Pulse Ox 02/15/18 08:00 98.0 F 67 18 110/74 96 Weight Weight 313 lb 3 oz I&O: 02/14/18 02/15/18 02/16/18 06:59 06:59 06:59 Intake Total 3450 2700 Output Total 5000 4500 Balance -1550 -1800 Result Diagrams: 02/12/18 04:22 02/12/18 04:22 Phys Exam - Physical Examination HEENT: PERRLA, moist MMs Neck: no JVD, supple Respiratory: no wheezing, no rales Cardiovascular: RRR, no significant murmur Gastrointestinal: soft, non-tender, positive bowel sounds spc+ Musculoskeletal: pulses present has quadriparesis Psychiatric: A&O x 3 Dx/Plan (1) Urinary tract infection due to ESBL Klebsiella Code(s): N39.0 - URINARY TRACT INFECTION, SITE NOT SPECIFIED; B96.89 - OTH BACTERIAL AGENTS THE CAUSE OF DISEASES CLASSD ELSWHR Status: Acute (2) Anxiety and depression Code(s): F41.9 - ANXIETY DISORDER, UNSPECIFIED; F32.9 - MAJOR DEPRESSIVE DISORDER, SINGLE EPISODE, UNSPECIFIED Status: Chronic (3) Dyslipidemia Code(s): E78.5 - HYPERLIPIDEMIA, UNSPECIFIED Status: Chronic (4) HIV (human immunodeficiency virus infection) Status: Chronic (5) Neurogenic bladder Code(s): N31.9 - NEUROMUSCULAR DYSFUNCTION OF BLADDER, UNSPECIFIED Status: Chronic (6) Obesity (BMI 30-39.9) Code(s): E66.9 - OBESITY, UNSPECIFIED Status: Chronic (7) Presence of suprapubic catheter Code(s): Z93.59 - OTHER CYSTOSTOMY STATUS Status: Chronic - Plan is on meropenem -: to get picc line and continue merrem till 10th of this month per -: CM to arrange outpt antibiotics -: cd4 is 367, may start his Genvoya as before for hiv -: dc iv fluids, baclofen prn * . Review of Systems - Medications/Allergies Allergies/Adverse Reactions: Allergies Allergy/AdvReac Type Severity Reaction Status Date / Time NSAIDS (Non-Steroidal Allergy Rash Verified 02/11/18 13:34 Anti-Inflamma Medications: Current Medications Acetaminophen (Tylenol) 650 mg PO Q4H PRN PRN Reason: Headache/Fever/Mild Pain (1-3) Hydrocodone Bitart/Acetaminophen ([place] 10/325) 1 tab PO Q4H PRN PRN Reason: Pain 4-6 Last Admin: 02/15/18 08:10 Dose: 1 tab Allopurinol (Zyloprim) 300 mg PO DAILY [facility] Last Admin: 02/15/18 08:09 Dose: 300 mg Artificial Tears (Tears Naturale) 2 drop EA EYE PRN PRN PRN Reason: Dry Eyes Atorvastatin Calcium (Lipitor) 20 mg PO HS [facility] Last Admin: 02/14/18 21:26 Dose: 20 mg Baclofen (Lioresal) 10 mg PO TID [facility] Last Admin: 02/15/18 08:10 Dose: 10 mg Bisacodyl (Dulcolax) 10 mg PO DAILYPRN PRN PRN Reason: Constipation Bisacodyl (Dulcolax) 10 mg [place] DAILYPRN PRN PRN Reason: Constipation Calcium Carbonate (Tums) 1,000 mg PO Q4H PRN PRN Reason: Heartburn or Indigestion Duloxetine HCl (Cymbalta) 30 mg PO HS [facility] Last Admin: 02/14/18 21:27 Dose: 30 mg Enoxaparin Sodium (Lovenox) 40 mg SC 0900 [facility] Last Admin: 02/15/18 08:10 Dose: Not Given Famotidine (Pepcid) 20 mg PO BID [facility] Last Admin: 02/15/18 08:10 Dose: 20 mg Gabapentin (Neurontin) 300 mg PO BID [facility] Last Admin: 02/15/18 08:10 Dose: 300 mg Guaifenesin (Robitussin Sf) 200 mg PO Q4H PRN PRN Reason: Cough Hydralazine HCl (Apresoline) 10 mg SLOW IVP Q4H PRN PRN Reason: SBP > 180 and HR < 70 Sodium Chloride (Normal Saline 0.9%) 1,000 mls @ 75 mls/hr IV .[id number] [facility] Last Admin: 02/15/18 08:27 Dose: Not Given Meropenem 1 gm/ Device 50 mls @ 100 mls/hr IVPB 0200,1000,1800 [facility] Last Admin: 02/15/18 08:09 Dose: 50 mls Loperamide HCl (Imodium) 2 mg PO PRN PRN PRN Reason: Diarrhea/Loose Stools Loratadine (Claritin) 10 mg PO DAILYPRN PRN PRN Reason: Sinus Symptoms Mineral Oil/White Petrolatum (Eucerin Cream) 0 gm TOP BIDPRN PRN PRN Reason: Dry Skin Ondansetron HCl (Zofran Odt) 4 mg PO Q6H PRN PRN Reason: Nausea/Vomiting Ondansetron HCl (Zofran) 4 mg IVP Q6H PRN PRN Reason: Nausea/Vomiting Elviteg/Cob/Emtri/Tenof Alafen [ Genvoya Tablet] 1 Each 0 each PO [facility] Saccharomyces Boulardii (Florastor) 250 mg PO DAILY [facility] Last Admin: 02/15/18 08:10 Dose: 250 mg Senna/Docusate Sodium (Senokot S) 2 tab PO BID PRN PRN Reason: Constipation Sodium Chloride ([place] Nasal [place] 0.65%) 0 ml EA NARE QIDPRN PRN PRN Reason: Nasal Congestion Sodium Chloride (Flush - Normal Saline) 10 ml IVF Q12HR [facility] Last Admin: 02/15/18 08:10 Dose: Not Given Sodium Chloride (Flush - Normal Saline) 10 ml IVF PRN PRN PRN Reason: Saline Flush Throat Lozenges (Cepastat Lozenges) 1 mc PO Q2H PRN PRN Reason: Sore Throat Tramadol HCl (Ultram) 100 mg PO Q6H PRN PRN Reason: Pain Last Admin: 02/15/18 02:28 Dose: 100 mg Zolpidem Tartrate (Ambien) 5 mg PO HSPRN PRN PRN Reason: Insomnia
--- NOTE | 2018-02-15 11:49 | SPC ---
FLUOROSCOPIC GUIDED LEFT UPPER EXTREMITY PICC LINE PLACEMENT: INDICATIONS: Need for long-term IV antibiotics. TECHNIQUE: The patient underwent informed consent. Pre-procedure ultrasound demonstrated a patent left brachial vein. The left upper extremity was prepped and draped in the usual sterile fashion. Buffered 1% Li docaine was administered to the overlying subcutaneous tissues. Under ultrasound guidance, a micropu ncture access kit was utilized to gain access to the left brachial vein. The guidewire was advanced to the level of the IVC, to verify venous side placement. A 5 Malag[place] catheter sheath was then placed . A single-lumen PICC line, trimmed to 48 cm, was guided over the wire and through the sheath. The sheath and wire were removed. Total fluoroscopic time was 0.5 minutes. Total exposure was 6491 mGy per cm2. The patient tolerated the procedure without difficulty. IMPRESSION: Successful ultrasound and fluoroscopy guided left upper extremity peripherally inserted [address] [place] ter line placement. POS: [facility]
[2018-02-15] MEDS: Atorvastatin Calcium 20 MG TAB PO SCH (20:26)
[2018-02-15] MEDS: DULoxetine 30 MG CAP PO SCH (20:26)
[2018-02-16] MEDS: MEROPENEM 1 GM/50 ML 1 GM in Premix Bag 1 BAG IVPB SCH ×2 (00:59→09:34)
[2018-02-16] MEDS: traMADol HCl 50 MG TAB PO PRN ×3 (01:05→16:17)
[2018-02-16] MEDS: Saccharomyces boulardii 250 MG CAP PO SCH (09:37)
[2018-02-16] MEDS: Enoxaparin Sodium 40 MG/0.4 ML SYRINGE SC SCH (09:37)
[2018-02-16] MEDS: Allopurinol 300 MG TAB PO SCH (09:38)
[2018-02-16] MEDS: Famotidine 20 MG TAB PO SCH (09:38)
[2018-02-16] MEDS: Gabapentin 300 MG CAP PO SCH (09:38)
[2018-02-16] MEDS: Baclofen 10 MG TAB PO SCH ×2 (09:38→16:19)
--- NOTE | 2018-02-16 11:13 | PDOC.PN ---
- Subjective Encounter Start Date: 02/16/18 Encounter Start Time: 10:15 Subjective: feels better, worked with PT yesterday -: no sob or pain - Objective Resuscitation Status: Resuscitation Status FULL:Full Resuscitation MAR Reviewed: Yes Vital Signs & Weight: Vital Signs (12 hours) Temp Pulse Resp BP Pulse Ox 02/16/18 08:00 97.9 F 78 14 128/83 95 02/16/18 04:00 97.6 F 77 18 111/74 95 Weight Weight 313 lb 3 oz I&O: 02/15/18 02/16/18 02/17/18 06:59 06:59 06:59 Intake Total 2700 1350 Output Total 4500 3000 Balance -1800 -1650 Result Diagrams: 02/12/18 04:22 02/12/18 04:22 Phys Exam - Physical Examination HEENT: PERRLA, moist MMs Neck: no JVD, supple Respiratory: no wheezing, no rales Cardiovascular: RRR, no significant murmur Gastrointestinal: soft, no distention, positive bowel sounds spc+ Musculoskeletal: no edema, pulses present quadriparesis Psychiatric: normal affect, A&O x 3 Dx/Plan (1) Urinary tract infection due to ESBL Klebsiella Code(s): N39.0 - URINARY TRACT INFECTION, SITE NOT SPECIFIED; B96.89 - OTH BACTERIAL AGENTS THE CAUSE OF DISEASES CLASSD ELSWHR Status: Acute (2) Anxiety and depression Code(s): F41.9 - ANXIETY DISORDER, UNSPECIFIED; F32.9 - MAJOR DEPRESSIVE DISORDER, SINGLE EPISODE, UNSPECIFIED Status: Chronic (3) Dyslipidemia Code(s): E78.5 - HYPERLIPIDEMIA, UNSPECIFIED Status: Chronic (4) HIV (human immunodeficiency virus infection) Status: Chronic (5) Neurogenic bladder Code(s): N31.9 - NEUROMUSCULAR DYSFUNCTION OF BLADDER, UNSPECIFIED Status: Chronic (6) Obesity (BMI 30-39.9) Code(s): E66.9 - OBESITY, UNSPECIFIED Status: Chronic (7) Presence of suprapubic catheter Code(s): Z93.59 - OTHER CYSTOSTOMY STATUS Status: Chronic (8) Quadriparesis Code(s): G82.50 - QUADRIPLEGIA, UNSPECIFIED Status: Chronic - Plan is on meropenem q8h, may switch to ertapenem daily if ok with -: may dc to snf if above is arranged -: hemostable -: continue genvoya for hiv, dc iv fluids -: baclofen prn for spasms * . Review of Systems - Medications/Allergies Allergies/Adverse Reactions: Allergies Allergy/AdvReac Type Severity Reaction Status Date / Time NSAIDS (Non-Steroidal Allergy Rash Verified 02/11/18 13:34 Anti-Inflamma Medications: Current Medications Acetaminophen (Tylenol) 650 mg PO Q4H PRN PRN Reason: Headache/Fever/Mild Pain (1-3) Hydrocodone Bitart/Acetaminophen ([place] ) 1 tab PO Q4H PRN PRN Reason: Pain 4-6 Last Admin: 02/15/18 20:31 Dose: 1 tab Allopurinol (Zyloprim) 300 mg PO DAILY [facility] Last Admin: 02/16/18 09:38 Dose: 300 mg Artificial Tears (Tears Naturale) 2 drop EA EYE PRN PRN PRN Reason: Dry Eyes Atorvastatin Calcium (Lipitor) 20 mg PO HS [facility] Last Admin: 02/15/18 20:26 Dose: 20 mg Baclofen (Lioresal) 10 mg PO TID [facility] Last Admin: 02/16/18 09:38 Dose: 10 mg Bisacodyl (Dulcolax) 10 mg PO DAILYPRN PRN PRN Reason: Constipation Bisacodyl (Dulcolax) 10 mg [place] DAILYPRN PRN PRN Reason: Constipation Calcium Carbonate (Tums) 1,000 mg PO Q4H PRN PRN Reason: Heartburn or Indigestion Duloxetine HCl (Cymbalta) 30 mg PO HS [facility] Last Admin: 02/15/18 20:26 Dose: 30 mg Enoxaparin Sodium (Lovenox) 40 mg SC 0900 [facility] Last Admin: 02/16/18 09:37 Dose: 40 mg Famotidine (Pepcid) 20 mg PO BID [facility] Last Admin: 02/16/18 09:38 Dose: 20 mg Gabapentin (Neurontin) 300 mg PO BID [facility] Last Admin: 02/16/18 09:38 Dose: 300 mg Guaifenesin (Robitussin Sf) 200 mg PO Q4H PRN PRN Reason: Cough Hydralazine HCl (Apresoline) 10 mg SLOW IVP Q4H PRN PRN Reason: SBP > 180 and HR < 70 Meropenem 1 gm/ Device 50 mls @ 100 mls/hr IVPB 0200,1000,1800 [facility] Last Admin: 02/16/18 09:34 Dose: 50 mls Loperamide HCl (Imodium) 2 mg PO PRN PRN PRN Reason: Diarrhea/Loose Stools Loratadine (Claritin) 10 mg PO DAILYPRN PRN PRN Reason: Sinus Symptoms Mineral Oil/White Petrolatum (Eucerin Cream) 0 gm TOP BIDPRN PRN PRN Reason: Dry Skin Ondansetron HCl (Zofran Odt) 4 mg PO Q6H PRN PRN Reason: Nausea/Vomiting Ondansetron HCl (Zofran) 4 mg IVP Q6H PRN PRN Reason: Nausea/Vomiting Elviteg/Cob/Emtri/Tenof Alafen [ Genvoya Tablet] 1 Each 0 each PO HS [facility] Last Admin: 02/15/18 20:27 Dose: 1 each Saccharomyces Boulardii (Florastor) 250 mg PO DAILY [facility] Last Admin: 02/16/18 09:37 Dose: 250 mg Senna/Docusate Sodium (Senokot S) 2 tab PO BID PRN PRN Reason: Constipation Sodium Chloride ([place] Nasal [place] 0.65%) 0 ml EA NARE QIDPRN PRN PRN Reason: Nasal Congestion Sodium Chloride (Flush - Normal Saline) 10 ml IVF Q12HR [facility] Last Admin: 02/16/18 09:39 Dose: Not Given Sodium Chloride (Flush - Normal Saline) 10 ml IVF PRN PRN PRN Reason: Saline Flush Throat Lozenges (Cepastat Lozenges) 1 mc PO Q2H PRN PRN Reason: Sore Throat Tramadol HCl (Ultram) 100 mg PO Q6H PRN PRN Reason: Pain Last Admin: 02/16/18 09:47 Dose: 100 mg Zolpidem Tartrate (Ambien) 5 mg PO HSPRN PRN PRN Reason: Insomnia
[2018-02-16 16:37] VITALS: BP 105/72; TEMP 97.3
--- NOTE | 2018-02-19 09:40 | DIS ---
PRIMARY DISCHARGE DIAGNOSIS: Multidrug resistant urinary tract infection with Klebsiella. SECONDARY DISCHARGE DIAGNOSES: Quadriparesis, presence of suprapubic catheter, obesity, neurogenic bladder, HIV status, dyslipidemia. PROCEDURES DONE DURING HOSPITALIZATION: Patient had abdominal and pelvic CAT scan done which showed no acute abnormality in the abdomen or pelvis. Ultrasound of the right upper quadrant done showed no evidence of cholelithiasis. Chest x-ray done showed no acute process. Urine culture grew Klebsiella pneumonia sensitive to meropenem, cefoxitin, amikacin, and resistant to all other antibiotics. Blood cultures x2 no growth. H&H 10 and 32, platelet count 280. Discharge BUN and creatinine is 15 and 1.1. CD4 count was 367. DISCHARGE MEDICATIONS: Meropenem 1 gram q.8 hourly until 02/24/2018, allopurinol 300 mg p.o. daily, baclofen 10 mg p.o. 3 times daily p.r.n. for spasms, Colace 283 mg at bedtime, Genvoya 1 tablet at bedtime, [place] p.r.n. for pain, Zocor 40 mg p.o. at bedtime, gabapentin 300 mg p.o. twice daily, Florastor 250 mg p.o. daily for 10 days, Ultram p.r.n. for pain. ALLERGIES: NSAIDs. INPATIENT CONSULT: Dr. Felix for Infectious Disease. BRIEF COURSE DURING HOSPITALIZATION: The patient initially was [facility] from [facility] after he was complaining of lower abdominal pain, back pain, and was feeling worse for about a week. On arrival, the patient had abnormal urinalysis suggestive of infection, but patient had a suprapubic catheter. There are no other sources of infection as such. The patient's urine culture grew multidrug resistant Klebsiella. He was on meropenem. He has had consultation with Dr. Felix. The patient is also immunosuppressed with HIV status, but has been compliant with his medication. His CD4 count was 387. In view of invasive multidrug resistant urinary tract infection, patient is advised to continue meropenem until the 10th of this month. He is otherwise hemodynamically stable and will be shortly discharged back to the [facility]. Please see a [id number] documentation for the day of discharge on [facility]. A total of 35 minutes was spent on discharge plan. [facility]
== END 2018-02-16 17:34 | DRG 689 ==
LOC: ERS 09:15 → T4-A 12:46
PROVIDERS: ADMIT Internal Medicine; ATTEND Internal Medicine
PROC: 02HV33Z Insertion of Infusion Device into Superior Vena Cava, Percutaneous Approach (ICD-10-PCS; principal; 2018-02-15)
DX: N39.0 Urinary tract infection, site not specified (principal); G82.52 Quadriplegia, C1-C4 incomplete; B20 Human immunodeficiency virus [HIV] disease; N31.9 Neuromuscular dysfunction of bladder, unspecified; Z16.24 Resistance to multiple antibiotics; B96.1 Klebsiella pneumoniae [K. pneumoniae] as the cause of diseases classified elsewhere; M54.5 Low back pain; E78.5 Hyperlipidemia, unspecified; G89.29 Other chronic pain; G62.9 Polyneuropathy, unspecified; M10.9 Gout, unspecified; F41.8 Other specified anxiety disorders; Z79.01 Long term (current) use of anticoagulants; Z16.12 Extended spectrum beta lactamase (ESBL) resistance; E66.9 Obesity, unspecified; Z68.37 Body mass index [BMI] 37.0-37.9, adult; Z93.59 Other cystostomy status
CPT/HCPCS: 36415; 36569; 71045; 74177; 76705; 80048; 80053; 81003; 81015; 83605; 83690; 85025; 85048; 86361; 87040; 87077; 87086; 87186; 87536; 93005; 96365; C1751; G8978-GP-CM; G8979-GP-CL; G8987-GO-CL; G8988-GO-CK; J1644; J1650; J2185

== ENCOUNTER 2019-06-10 16:13 | Inpatient (IN) | payer OTHER ==
[2019-06-10 17:32] LABS: Bilirubin Negative (Negative); Blood, Urine Small (Negative); Glucose, Urine (Dipstick) 250 mg/dL (Negative); Leukocyte Moderate (Negative); Nitrite Negative (Negative); Protein, Urine (Dipstick) 30 mg/dL (Neg-Trace); Urobilinogen 0.2 mg/dL (Less than 2)
[2019-06-10 17:33] LABS: Clarity Cloudy (Clear)
[2019-06-10 17:41] LABS: Amphetamine Not Detected (NotDetected); Barbiturates Screen Not Detected (NotDetected); Benzodiazepine Screen Not Detected (NotDetected); Cocaine Metabolite Screen Not Detected (NotDetected); Medtox Control Line Valid? VALID (VALID); Medtox Reader # READER 1; Methadone Not Detected (NotDetected); Methamphetamine Not Detected (NotDetected); Opiate Screen Detected (NotDetected); Oxycodone Screen Not Detected (NotDetected); Phencyclidine (PCP) Not Detected (NotDetected); THC/Cannabinoid Screen Not Detected (NotDetected); Tricyclic Screen Detected (NotDetected)
[2019-06-10 17:43] LABS: Bacteria/HPF 2+ HPF (None Seen); Squamous Epithelial None Seen HPF (0-3); Triple Phosphate Crystal 4+ HPF (None Seen)
[2019-06-10 17:48] LABS: #Basophils 0.1 thou/uL (0.0-0.2); #Eosinphils 0.3 thou/uL (0.0-0.7); #Lymphocytes 3.5 thou/uL (1.20-3.40); #Monocytes 0.9 thou/uL (0.11-0.59); #Neutrophils 4.6 thou/uL (1.40-6.50); %Basophils 0.9 % (0.0-1.0); %Eosinophils 2.9 % (0.0-10.0); %Lymphocytes 37.3 % (21.0-51.0); %Monocytes 9.8 % (0.0-10.0); %Neutrophils 49.2 % (42.0-75.0); Mean Corpuscular HGB CONC 32.8 g/dL (32.0-36.0); Mean Corpuscular Volume 79.3 fL (78.0-98.0); Mean Platelet Volume 9.3 fL (7.4-10.4); Platelet Count 243 thou/uL (130-400); RBC Distribution Width 14.5 % (11.5-14.5); Red Blood Cell (RBC) Count 4.99 mill/uL (4.70-6.10); White Blood Cell (WBC) Count 9.3 thou/uL (4.8-10.8)
[2019-06-10 18:11] LABS: ALT (SGPT) 26 U/L (8-55); AST (SGOT) 22 U/L (5-34); Albumin 4.5 g/dL (3.5-5.0); Alkaline Phosphatase 102 U/L (40-110); Anion Gap 18 mmol/L (10-20); BUN (Urea Nitrogen) 19 mg/dL (8.9-20.6); Bilirubin, Total 0.3 mg/dL (0.2-1.2); Calc. Creatinine Clearance 0 mL/min (70-130); Carbon Dioxide 22 mmol/L (22-29); Chloride 100 mmol/L (98-107); Estimated GFR-MDRD 45; Globulin 4.1 g/dL (2.4-3.5); Glucose 186 mg/dL (70-105); Potassium 4.2 mmol/L (3.5-5.1); Protein, Total 8.6 g/dL (6.0-8.3); Sodium 136 mmol/L (136-145)
--- NOTE | 2019-06-10 18:19 | RAD ---
SINGLE VIEW OF THE CHEST: Comparison: 02-11-18 History: Two seizures prior to arrival with altered mental status. FINDINGS: Single view of the chest shows a normal sized cardiomediastinal silhouette. There is no evidence of c onsolidation, mass, or pleural effusion. Hardware is seen in the cervical spine. IMPRESSION: No evidence of acute cardiopulmonary disease. POS: [facility]
[2019-06-10] MEDS ORDERED: cefTRIAXone\\ROCEPHIN 1 GM VIAL ONE (18:56)
--- NOTE | 2019-06-10 19:36 | CT ---
CT ABDOMEN AND PELVIS WITHOUT CONTRAST: Comparison: 02-27-19 History: Urinary tract infection. Technique: Multiple contiguous axial images were obtained in a CT of the abdomen and pelvis without c ontrast. Sagittal and coronal reformats were performed. FINDINGS: This patient has a suprapubic tube decompressing the urinary bladder. An intra vena cava filter is se en. The gallbladder is decompressed. The liver, kidneys, adrenal glands, spleen, and pancreas are unr emarkable. No calcifications are seen in either kidney or ureter. No hydronephrosis is seen. The large and small bowel are unremarkable. No abdominal or pelvic lymphadenopathy are present. Degenerative changes are seen in the spine. The visualized inferior thorax and abdominal wall soft ti ssues are unremarkable. IMPRESSION: No evidence of acute intraabdominal/pelvic abnormality. POS: [facility]
[2019-06-10] MEDS ORDERED: Morphine 4 MG/ML VIAL ONE (19:48)
[2019-06-10 21:04] LABS: Lactic Acid 1.5 mmol/L (0.5-2.2)
[2019-06-11] MEDS ORDERED: Lactated Ringer's 1,000 ML IV SCH (01:45)
[2019-06-11] MEDS ORDERED: Meropenem 500 MG in Sodium Chloride 0.9% 100 ML IVPB SCH (02:00)
[2019-06-11] MEDS ORDERED: HYDROcodone/Acetaminophen 10/325 mg Tablet PO PRN (05:56)
[2019-06-11] MEDS ORDERED: Simethicone Chewable 80 MG TAB PO PRN (05:56)
[2019-06-11] MEDS ORDERED: Acetaminophen 500 MG TAB PO PRN (05:56)
[2019-06-11] MEDS ORDERED: LIDOCAINE HCL 76.5 GM TOP PRN (05:56)
[2019-06-11] MEDS ORDERED: Magnesium Citrate 300 ML BOT PO PRN (05:56)
[2019-06-11] MEDS ORDERED: Non-Formulary Item 1 EACH (Acetaminophen [Tylenol] 650 MG) PO PRN (05:56)
[2019-06-11] MEDS ORDERED: Acetaminophen 325 MG TAB PO PRN (05:57)
[2019-06-11] MEDS ORDERED: Calcium Carbonate 500 MG ChewTAB PO PRN (05:57)
[2019-06-11] MEDS ORDERED: cloNIDine 0.1 MG TAB PO PRN (06:00)
[2019-06-11 06:31] VITALS: BMI 39.1
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
[2019-06-11] MEDS: Baclofen 10 MG TAB PO SCH ×4 (06:42→23:34)
[2019-06-11] MEDS: Lactated Ringer's 1,000 ML IV SCH ×3 (07:22→20:40)
[2019-06-11] MEDS ORDERED: Vancomycin HCl 2.5 GM in Sodium Chloride 0.9% 500 ML IVPB SCH (08:00)
[2019-06-11] MEDS: Pregabalin 50 MG CAP PO SCH ×3 (08:33→20:36)
[2019-06-11] MEDS: Oxybutynin 5 MG TAB PO SCH (08:33)
[2019-06-11] MEDS: Calcium Carbonate + Vit D 1 TAB PO SCH ×2 (08:33→16:59)
[2019-06-11] MEDS: Docusate 100 MG CAP PO SCH ×3 (08:33→20:36)
[2019-06-11] MEDS: Senokot 8.6 MG TAB PO SCH (08:34)
[2019-06-11] MEDS: DULoxetine 30 MG CAP PO SCH (08:34)
[2019-06-11] MEDS: Gabapentin 400 MG CAP PO SCH ×3 (08:34→20:36)
[2019-06-11] MEDS: Apixaban 5 MG TAB PO SCH ×2 (08:34→20:36)
[2019-06-11] MEDS: Allopurinol 300 MG TAB PO SCH (08:35)
[2019-06-11] MEDS: Famotidine 20 MG TAB PO SCH ×2 (08:35→20:36)
[2019-06-11] MEDS: Polyethylene Glycol 3350 17 GM Packet PO SCH (08:35)
[2019-06-11] MEDS ORDERED: MEROPENEM 1 GM/50 ML 1 GM in Premix Bag 1 BAG IVPB SCH (10:00)
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
[2019-06-11] MEDS: Vancomycin 1.5 GRAM/300 ML BAG 1.5 GM in Premix Bag 1 BAG IVPB SCH (20:35)
[2019-06-11] MEDS: Atorvastatin Calcium 10 MG TAB PO SCH (20:36)
[2019-06-11] MEDS ORDERED: Elviteg/Cob/Emtri/Tenof Alafen [Genvoya Tablet] 1 EACH PO SCH (21:00)
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
[2019-06-12] MEDS: Lactated Ringer's 1,000 ML IV SCH ×2 (03:53→15:37)
[2019-06-12] MEDS: Baclofen 10 MG TAB PO SCH ×3 (05:41→16:52)
[2019-06-12 05:46] LABS: #Eosinphils 0.2 thou/uL (0.0-0.7); #Lymphocytes 3.1 thou/uL (1.20-3.40); #Monocytes 0.8 thou/uL (0.11-0.59); #Neutrophils 3.1 thou/uL (1.40-6.50); %Basophils 0.7 % (0.0-1.0); %Eosinophils 2.7 % (0.0-10.0); %Lymphocytes 42.6 % (21.0-51.0); %Neutrophils 43.2 % (42.0-75.0); Hemoglobin 11.3 g/dL (14.0-18.0); Mean Corpuscular HGB CONC 31.9 g/dL (32.0-36.0); Mean Corpuscular Hemoglobin 25.5 pg (27.0-31.0); Mean Platelet Volume 8.8 fL (7.4-10.4); Platelet Count 212 thou/uL (130-400); RBC Distribution Width 14.3 % (11.5-14.5); Red Blood Cell (RBC) Count 4.41 mill/uL (4.70-6.10); White Blood Cell (WBC) Count 7.2 thou/uL (4.8-10.8)
[2019-06-12 06:07] LABS: ALT (SGPT) 19 U/L (8-55); AST (SGOT) 14 U/L (5-34); Albumin 3.7 g/dL (3.5-5.0); Alkaline Phosphatase 82 U/L (40-110); Anion Gap 13 mmol/L (10-20); BUN (Urea Nitrogen) 11 mg/dL (8.9-20.6); Bilirubin, Total 0.4 mg/dL (0.2-1.2); Calc. Creatinine Clearance 158 mL/min (70-130); Carbon Dioxide 24 mmol/L (22-29); Chloride 102 mmol/L (98-107); Estimated GFR-MDRD 78; Globulin 3.2 g/dL (2.4-3.5); Glucose 147 mg/dL (70-105); Potassium 3.8 mmol/L (3.5-5.1); Protein, Total 6.9 g/dL (6.0-8.3); Sodium 135 mmol/L (136-145)
[2019-06-12] MEDS: Oxybutynin 5 MG TAB PO SCH (08:45)
[2019-06-12] MEDS: Allopurinol 300 MG TAB PO SCH (08:45)
[2019-06-12] MEDS: Gabapentin 400 MG CAP PO SCH ×3 (08:45→22:02)
[2019-06-12] MEDS: Calcium Carbonate + Vit D 1 TAB PO SCH ×2 (08:46→15:34)
[2019-06-12] MEDS: Senokot 8.6 MG TAB PO SCH (08:46)
[2019-06-12] MEDS: Docusate 100 MG CAP PO SCH ×3 (08:46→22:01)
[2019-06-12] MEDS: Apixaban 5 MG TAB PO SCH ×2 (08:46→22:01)
[2019-06-12] MEDS: Pregabalin 50 MG CAP PO SCH ×3 (08:46→22:02)
[2019-06-12] MEDS: DULoxetine 30 MG CAP PO SCH (08:46)
[2019-06-12] MEDS: Polyethylene Glycol 3350 17 GM Packet PO SCH (08:47)
[2019-06-12] MEDS: Famotidine 20 MG TAB PO SCH ×2 (08:47→22:01)
[2019-06-12] MEDS: Vancomycin 1.5 GRAM/300 ML BAG 1.5 GM in Premix Bag 1 BAG IVPB SCH (10:37)
--- NOTE | 2019-06-12 14:32 | PDOC.HOSPP ---
- Subjective Encounter Date: 06/12/19 Encounter Time: 09:40 Subjective: Pt seen for followup re: acute metabolic encephalopathy. Feels better today. - Objective Vital Signs & Weight: Vital Signs (12 hours) Temp Pulse Resp BP Pulse Ox 06/12/19 11:54 98.2 F 84 18 112/76 99 06/12/19 08:00 97.9 F 72 18 127/82 99 Weight Admit Weight 330 lb Weight 330 lb I&O: 06/11/19 06/12/19 06/13/19 06:59 06:59 06:59 Output Total 1000 Balance -1000 Result Diagrams: 06/12/19 05:19 06/12/19 05:19 Additional Labs: Labs and MARs reviewed by wi Hospitalist ROS - Review of Systems Constitutional: denies: fever, chills, sweats, weakness, malaise Cardiovascular: denies: chest pain, palpitations, orthopnea, paroxysmal noc. dyspnea, edema, light headedness Gastrointestinal: denies: nausea, vomiting, abdominal pain, diarrhea, constipation, melena, hematochezia Musculoskeletal: denies: neck pain, shoulder pain, arm pain, back pain, hand pain, leg pain, foot pain Skin: denies: rash, lesions, yusuf, bruising - Medication Medications: Active Medications Generic Name Dose Route Start Last Admin Trade Name Freq PRN Reason Stop Dose Admin Hydrocodone Bitart/Acetaminophen 1 tab 06/11/19 05:56 06/11/19 06:43 [place] 10/325 PO 1 tab Q4HR PRN Administration Moderate Pain (4-6) Allopurinol 300 mg 06/11/19 09:00 06/12/19 08:45 Zyloprim PO 300 mg DAILY BRANDYN Administration Apixaban 5 mg 06/11/19 09:00 06/12/19 08:46 Eliquis PO 5 mg BID BRANDYN Administration Atorvastatin Calcium 10 mg 06/11/19 21:00 06/11/19 20:36 Lipitor PO 10 mg HS BRANDYN Administration Baclofen 20 mg 06/11/19 06:00 06/12/19 11:31 Lioresal PO 20 mg Q6HR BRANDYN Administration Calcium/Vitamin D 1 tab 06/11/19 08:00 06/12/19 08:46 Caltrate 600 + Vit D PO 1 tab BID-WM BRANDYN Administration Docusate Sodium 100 mg 06/11/19 09:00 06/12/19 08:46 Colace PO 100 mg TID BRANDYN Administration Duloxetine HCl 30 mg 06/11/19 09:00 06/12/19 08:46 Cymbalta PO 30 mg DAILY BRANDYN Administration Famotidine 20 mg 06/11/19 09:00 06/12/19 08:47 Pepcid PO 20 mg BID BRANDYN Administration Gabapentin 1,200 mg 06/11/19 09:00 06/12/19 08:45 Neurontin PO 1,200 mg TID BRANDYN Administration Lactated Ringer's 1,000 mls @ 125 mls/hr 06/11/19 06:02 06/12/19 03:53 Lactated Ringer's IV 06/13/19 01:46 1,000 mls .Q8H BRANDYN Administration Oxybutynin Chloride 15 mg 06/11/19 09:00 06/12/19 08:45 Ditropan PO 15 mg DAILY BRANDYN Administration Polyethylene Glycol 17 gm 06/11/19 09:00 06/12/19 08:47 Miralax PO Not Given DAILY BRANDYN Pregabalin 50 mg 06/11/19 09:00 06/12/19 08:46 Lyrica PO 50 mg TID BRANDYN Administration Senna 4 tab 06/11/19 09:00 06/12/19 08:46 Senokot PO 4 tab DAILY BRANDYN Administration - Exam General Appearance: awake alert Eye: anicteric sclera ENT: moist mucosa Neck: supple, symmetric, no thyromegaly, no lymphadenopathy Heart: RRR, no gallops, no rubs, normal peripheral pulses Respiratory: CTAB, no wheezes, no rales, no ronchi Gastrointestinal: soft, non-tender, normal bowel sounds, no bruit Extremities: no cyanosis Neurological - other findings: paraplegia Psychiatric: normal affect, normal behavior Hosp A/P (1) Acute metabolic encephalopathy Code(s): G93.41 - METABOLIC ENCEPHALOPATHY Status: Acute (2) Dyslipidemia Code(s): E78.5 - HYPERLIPIDEMIA, UNSPECIFIED Status: Chronic (3) HIV (human immunodeficiency virus infection) Status: Chronic (4) Obesity (BMI 30-39.9) Code(s): E66.9 - OBESITY, UNSPECIFIED Status: Chronic (5) Presence of suprapubic catheter Code(s): Z93.59 - OTHER CYSTOSTOMY STATUS Status: Chronic (6) Anxiety and depression Code(s): F41.9 - ANXIETY DISORDER, UNSPECIFIED; F32.9 - MAJOR DEPRESSIVE DISORDER, SINGLE EPISODE, UNSPECIFIED Status: Chronic - Plan Pt clinically improved. Acute metabolic encephalopathy most likely due to medication use. Suprapubic catheter changed. Pt seen by urology re: suprapubic catheter and erectile dysfunction. CD4 and HIV viral load pending. Discontinue antibiotics. Depression mild, stable.
[2019-06-12] MEDS: Atorvastatin Calcium 10 MG TAB PO SCH (22:01)
[2019-06-13] MEDS: Baclofen 10 MG TAB PO SCH ×3 (00:19→15:17)
[2019-06-13] MEDS: Lactated Ringer's 1,000 ML IV SCH (00:20)
[2019-06-13 07:50] VITALS: BP 132/80; TEMP 97.8
[2019-06-13] MEDS: DULoxetine 30 MG CAP PO SCH (09:15)
[2019-06-13] MEDS: Allopurinol 300 MG TAB PO SCH (09:15)
[2019-06-13] MEDS: Gabapentin 400 MG CAP PO SCH (09:15)
[2019-06-13] MEDS: Calcium Carbonate + Vit D 1 TAB PO SCH (09:16)
[2019-06-13] MEDS: Apixaban 5 MG TAB PO SCH (09:16)
[2019-06-13] MEDS: Famotidine 20 MG TAB PO SCH (09:16)
[2019-06-13] MEDS: Pregabalin 50 MG CAP PO SCH (09:16)
[2019-06-13] MEDS: Senokot 8.6 MG TAB PO SCH (09:17)
[2019-06-13] MEDS: Docusate 100 MG CAP PO SCH (09:17)
[2019-06-13] MEDS: Polyethylene Glycol 3350 17 GM Packet PO SCH (09:17)
[2019-06-13] MEDS: Oxybutynin 5 MG TAB PO SCH (09:26)
--- NOTE | 2019-06-13 14:24 | DIS ---
DATE OF ADMISSION: 06/10/2019 DATE OF DISCHARGE: 06/13/2019 PRIMARY CARE PROVIDER: Zunilda Wang MD DISCHARGE DIAGNOSES: 1. Acute metabolic encephalopathy, most likely secondary to acute on chronic stage 2 renal failure. 2. Hyponatremia. CONDITION: Condition of the patient on the day of discharge: Stable. I assessed Mr. Beckwith on the day of discharge. He denies any chest pain or shortness of breath. Vital signs are stable. S1 and S2 are heard, regular. Lungs are clear to auscultation bilaterally. CONSULTATIONS DURING THIS HOSPITALIZATION: 1. Infectious Diseases, Dr. Felix. 2. Urology, Dr. Hira Valdez. POST ACUTE CARE FOLLOWUP: With primary care provider in [address] Valdez in 3 to 4 weeks. DISCHARGE MEDICATIONS: No change was made to his pre-admission home medications as dictated by Dr. Cabral in his history and physical note dated June 11, 2019. HOSPITAL COURSE: Mr. Beckwith is a pleasant 49-year-old gentleman, who was admitted to [facility] on June 10, 2019, for acute metabolic encephalopathy. Initially, the concern was for infection associated with suprapubic catheter. He was seen by Infectious Diseases and Urology Services. According to them, this was more likely colonization and not infection. Antibiotics were discontinued. Urology Service recommends catheter change and bag change on at least a weekly basis. The patient continued to improve. He is being discharged back to his [facility] in a stable condition. DIET: Heart healthy. ACTIVITY: As tolerated. DISCHARGE DESTINATION: Longterm, from where the patient was admitted to the hospital. TIME SPENT: Total amount of time spent in coordinating this discharge: 31 minutes. Job ID: [id number]
[2019-06-13 18:08] LABS: %CD4 (Helper/Inducer) 15.7 % (30.8-58.5); Absolute CD4 518 /uL (359-1519); Lymphocytes/Gated Cell Count 3.3 x10E3/uL (0.7-3.1); Total Lymphocyte 45 % (Not Estab.); WBC Total Count 7.2 x10E3/uL (3.4-10.8)
[2019-06-14 12:14] LABS: LOG10 HIV-1 RNA 2.362 (.)
== END 2019-06-13 14:38 | DRG 682 ==
LOC: ERS 16:13 → T4-B 19:45
PROVIDERS: ADMIT Internal Medicine; ATTEND Internal Medicine
DX: N17.9 Acute kidney failure, unspecified (principal); G93.41 Metabolic encephalopathy; G82.50 Quadriplegia, unspecified; E87.1 Hypo-osmolality and hyponatremia; R44.3 Hallucinations, unspecified; F32.0 Major depressive disorder, single episode, mild; N18.2 Chronic kidney disease, stage 2 (mild); M10.9 Gout, unspecified; I12.9 Hypertensive chronic kidney disease with stage 1 through stage 4 chronic kidney disease, or unspecified chronic kidney disease; D69.6 Thrombocytopenia, unspecified; Z21 Asymptomatic human immunodeficiency virus [HIV] infection status; E86.0 Dehydration; R47.81 Slurred speech; E78.5 Hyperlipidemia, unspecified; F41.9 Anxiety disorder, unspecified; M54.5 Low back pain; Z88.8 Allergy status to other drugs, medicaments and biological substances; G89.4 Chronic pain syndrome; N31.2 Flaccid neuropathic bladder, not elsewhere classified; N52.9 Male erectile dysfunction, unspecified; Z93.59 Other cystostomy status; E66.9 Obesity, unspecified; Z68.39 Body mass index [BMI] 39.0-39.9, adult
CPT/HCPCS: 36415; 71045; 74176; 80053; 80306; 81003; 81015; 83605; 85025; 85048; 86361; 87040; 87086; 87536; 87633; 93005; 96361; 96365; J0696; J2185; J2270; J3370; J3490; J7050